=== PATIENT | female | born 1960 | race Caucasian/White ===

== ENCOUNTER → 2017-01-29 | Outpatient (CLI) | payer MEDICARE ==
[~2017-01-29] VITALS: Ht 165.1 cm; Wt 71.7 kg
[~2017-01-29] MED LIST: ALBU8.5H2 INH; ALPR.5T PO; ALPR1T PO; ALPR1TAB7 PO; ASP81CT PO; ASPI-892 PO; ASPI325T32 PO; ATOR40TA PO; ATOR40TA70 PO; BENA40TA59 PO; CATHETER FLUSH 10 ML SYR IV PRN; CEPH500C PO; CLOP75TA28 PO; CLPD75T PO; DOXY100C2 PO; DOXY100C42 PO; FURO80TA3 PO; HYDR-3714 PO; HYDR-3816 PO; HYDR118S10 PO; LAMO150T2 PO; LAMO150T3 PO; LISI10TA PO; LISI10TA2 PO; LISI20TA PO; LISI40TA PO; LSNP10T PO; MELO-195 PO; MELO15TA39 PO; METO-387 PO; METO-395 PO; METO25TA PO; METO25TA2 PO; MTP50T PO; NIA500ERT PO; OMEG-11 PO; OMG1KC PO; PANT40TA2 PO; PARO30TA74 PO; PARO40TA2 PO; PARO40TA3 PO; PARO40TA47 PO; PNT40TEC PO; POTA10TA PO; PRX20T PO; REGADENOSON 0.4 MG/5 ML SYR (LEXISCAN) IV ONE; RT-ALBUINH IH; SPIR25TA3 PO; SULF1TAB38 PO; VERA360C2 PO; VERA80TA PO; ZLP10T PO; ZOLP10TA5 PO; ZOLP5TAB6 PO; ZOLP5TAB7 PO
[2017-01-29 09:31] VITALS: BP 126/71
--- NOTE | 2017-01-30 12:37 | STRESS TEST ---
DATE OF SERVICE: 01/29/2017 PROCEDURE: Resting and post regadenoson technetium-99m Tetrofosmin SPECT CT imaging. CLINICAL DIAGNOSES: Coronary artery disease, hypertension, ischemic cardiomyopathy, chronic kidney disease stage III. Baseline images were carried out after injection of 10.55 mCi of technetium-99m Tetrofosmin. This was followed by 0.4 mg regadenoson and 30.1 mCi of technetium-99m Tetrofosmin for stress imaging. The electrocardiogram showed sinus rhythm with intermittent left bundle branch block and isolated premature ventricular contractions. There is nonspecific ST segment abnormality. Review of images at rest and following stress indicates anteroapical and inferior perfusion defects that are predominantly fixed. Gated images show anteroapical akinesis and inferior hypokinesis. Left ventricular ejection fraction is calculated to be 41%. There is moderate dilatation of the LV. TID is absent ( 1.02). CONCLUSIONS: 1. This study is indicative of anteroapical and inferior myocardial infarction without significant ischemia. 2. Moderate cardiomegaly. Moderate dilatation of the left ventricle. 3. Anteroapical akinesis and inferior hypokinesis. 4. Left ventricular ejection fraction is calculated to be 41%. Job ID: [id number] DocumentID: [id number] Dictated Date: 01/30/2017 10:58:46 Butadiene Convertor Operator Date: 01/30/2017 11:24:29 Dictated By: SHARMILA RAYMUNDO MD, MA, FACP, FACC, MTDD
== END ==
LOC: CARD 08:41
PROVIDERS: ATTEND Internal Medicine Cardiovascular Disease
DX: I25.10 Atherosclerotic heart disease of native coronary artery without angina pectoris (principal); I25.5 Ischemic cardiomyopathy; I12.9 Hypertensive chronic kidney disease with stage 1 through stage 4 chronic kidney disease, or unspecified chronic kidney disease; N18.3 Chronic kidney disease, stage 3 (moderate); E78.4 Other hyperlipidemia; Z72.0 Tobacco use
CPT/HCPCS: 78452; 93017

== ENCOUNTER → 2017-07-09 | Outpatient (CLI) | payer MEDICARE ==
[~2017-07-09] MED LIST changes: -CATHETER FLUSH 10 ML SYR IV PRN; +HYDR-34 PO; -REGADENOSON 0.4 MG/5 ML SYR (LEXISCAN) IV ONE
== END ==
LOC: RAD 12:53
PROVIDERS: ATTEND Internal Medicine Cardiovascular Disease
DX: I73.9 Peripheral vascular disease, unspecified (principal); N18.3 Chronic kidney disease, stage 3 (moderate)
CPT/HCPCS: 93923

== ENCOUNTER → 2018-01-06 | Outpatient (CLI) | payer MEDICARE, OTHER ==
[~2018-01-06] MED LIST changes: -SPIR25TA3 PO; +SPIR25TA5 PO
--- NOTE | 2018-01-06 09:31 | Diagnostic Imaging Report ---
Abdominal aortic ultrasound. INDICATION: Aneurysm. There are no recent examinations available for comparison. FINDINGS: The CT abdomen/pelvis exam of 12/03 noted ectasia of the aorta, but failed to show any sign of aneurysm. On this exam, however, the distal abdominal aorta is aneurysmally dilated. The aorta measures 3.7 x 3.7 CM in maximum transverse and AP diameters. The proximal aorta measures 2.5 x 2.3 cm and the mid aorta 1.9 x 1.9 CM. There is no periaortic fluid collection to suggest an acute abnormality. IMPRESSION: There is a 3.7 x 3.7 CM aneurysm of the distal abdominal aorta. There is no acute abnormality noted. Dictated by: Dictated on workstation # [id number]
== END ==
LOC: RAD 07:00
PROVIDERS: ATTEND Internal Medicine Cardiovascular Disease
DX: I71.4 Abdominal aortic aneurysm, without rupture (principal)
CPT/HCPCS: 76775

== ENCOUNTER → 2018-12-24 | Outpatient (CLI) | payer MEDICARE ==
--- NOTE | 2018-12-24 12:30 | Diagnostic Imaging Report ---
PROCEDURE: US Venous Lower Ext Augusto. TECHNIQUE: Multiple Real-time grayscale images were obtained over the lower extremities in various projections bilaterally. Additional duplex Doppler and color Doppler images were also obtained. INDICATION: Leg pain and swelling COMPARISON: There are no prior studies available for comparison. FINDINGS: There is generally good blood flow and compressibility at all levels. There is no evidence for a deep venous thrombosis of either lower extremity. IMPRESSION: There is no evidence for a deep venous thrombosis of either lower extremity. Dictated by: Dictated on workstation # [id number]
== END ==
LOC: RAD 10:49
PROVIDERS: ATTEND Internal Medicine Cardiovascular Disease
DX: M79.89 Other specified soft tissue disorders (principal); I70.213 Atherosclerosis of native arteries of extremities with intermittent claudication, bilateral legs; I71.4 Abdominal aortic aneurysm, without rupture; I25.10 Atherosclerotic heart disease of native coronary artery without angina pectoris; I65.29 Occlusion and stenosis of unspecified carotid artery; I50.22 Chronic systolic (congestive) heart failure; N18.3 Chronic kidney disease, stage 3 (moderate); Z95.810 Presence of automatic (implantable) cardiac defibrillator; Z72.0 Tobacco use
CPT/HCPCS: 93923; 93970

== ENCOUNTER → 2019-01-21 | Outpatient (CLI) | payer MEDICARE ==
--- NOTE | 2019-01-21 08:07 | Diagnostic Imaging Report ---
INDICATION: Abdominal aortic aneurysm. COMPARISON: Comparison is made with prior ultrasound from 01/06/2018. FINDINGS: Proximal abdominal aorta measures 2.5 cm AP x 2.5 cm transverse. Midabdominal aorta measures 2.3 cm AP x 2.5 cm transverse. Distal abdominal aorta measures 3.8 cm AP x 4.3 cm transverse. This compares with 3.7 cm x 3.7 cm on prior exam. Right iliac measures 2.2 x 1.9 cm and the left iliac measures 1.7 x 1.5 cm. No perianeurysmal fluid collection to suggest leakage or rupture is seen. IMPRESSION: Slight increase in size of distal abdominal aortic aneurysm when compared with examination one year earlier. Dictated by: Dictated on workstation # [id number]
== END ==
LOC: RAD 06:59
PROVIDERS: ATTEND Internal Medicine Cardiovascular Disease
DX: I71.4 Abdominal aortic aneurysm, without rupture (principal)
CPT/HCPCS: 76775

== ENCOUNTER → 2019-10-12 | Outpatient (CLI) | payer MEDICARE ==
[~2019-10-12] MED LIST changes: -METO-387 PO; -METO-395 PO; +MTP100TCR PO; +MTP25TSR PO
== END ==
LOC: CARD 12:00
PROVIDERS: ATTEND Nurse Practitioner Family
DX: I08.1 Rheumatic disorders of both mitral and tricuspid valves (principal); I12.0 Hypertensive chronic kidney disease with stage 5 chronic kidney disease or end stage renal disease; I50.22 Chronic systolic (congestive) heart failure; I71.4 Abdominal aortic aneurysm, without rupture; I70.213 Atherosclerosis of native arteries of extremities with intermittent claudication, bilateral legs; I49.3 Ventricular premature depolarization; I25.10 Atherosclerotic heart disease of native coronary artery without angina pectoris; E78.5 Hyperlipidemia, unspecified; I65.23 Occlusion and stenosis of bilateral carotid arteries
CPT/HCPCS: 93225; 93226; 93306

== ENCOUNTER → 2019-10-13 | Outpatient (CLI) | payer MEDICARE ==
[~2019-10-13] VITALS: Ht 165 cm; Wt 71.0 kg
[~2019-10-13] MED LIST changes: +CATHETER FLUSH 10 ML SYR IV PRN; +REGADENOSON 0.4 MG/5 ML SYR (LEXISCAN) IV ONE
[2019-10-13 09:38] VITALS: BP 142/89
--- NOTE | 2019-10-13 19:49 | STRESS TEST ---
DATE OF SERVICE: 10/13/2019 RESTING AND POST REGADENOSON TECHNETIUM-99M TETROFOSMIN SPECT CT IMAGING ORDERING PHYSICIAN: Adriane Montenegro APRN PRIMARY PHYSICIAN: [facility]. OTHER PHYSICIAN: Dr. Raymundo. CLINICAL DIAGNOSES: Coronary artery disease. Baseline images were carried out after injection of 10.93 mCi of technetium-99m Tetrofosmin. This was followed by 0.4 mg regadenoson and 31.6 mCi of technetium-99m Tetrofosmin for stress imaging. The electrocardiogram showed sinus rhythm at baseline. There was a diffuse nonspecific ST and T-wave abnormality. The electrocardiogram also showed intermittent premature ventricular contractions, including some couplets and triplets. The patient noted mild shortness of breath following regadenoson infusion, which resolved in a few minutes. Review of images shows significant cardiomegaly. Left ventricular end diastolic volume is 237 mL. TID is absent (1.09). The study demonstrates anteroapical and lateral perfusion defects that are predominantly fixed. Gated images show global hypokinesis and anteroapical and lateral wall akinesis. Left ventricular ejection fraction is calculated to be 18%. CONCLUSIONS: 1. This study is indicative of anteroapical and lateral wall infarctions. 2. Global hypokinesis and anteroapical and lateral akinesis. 3. Impairment of global left ventricular systolic function with a calculated ejection fraction of 18%. 4. Cardiomegaly. Job ID: [id number] DocumentID: [id number] Dictated Date: 10/13/2019 15:02:36 Mirror Department Supervisor Date: 10/13/2019 19:48:34 Dictated By: SHARMILA RAYMUNDO MD, MA, FACP, FACC,
== END ==
LOC: CARD 08:00
PROVIDERS: ATTEND Nurse Practitioner Family
DX: I50.22 Chronic systolic (congestive) heart failure (principal); I65.29 Occlusion and stenosis of unspecified carotid artery; E78.5 Hyperlipidemia, unspecified; I25.10 Atherosclerotic heart disease of native coronary artery without angina pectoris; I10 Essential (primary) hypertension; I71.4 Abdominal aortic aneurysm, without rupture; I73.9 Peripheral vascular disease, unspecified; I49.3 Ventricular premature depolarization
CPT/HCPCS: 78452; 93017; A9502

== ENCOUNTER 2019-12-29 10:00 | Day surgery (SDC) | payer MEDICARE ==
[2019-12-29] VITALS (10 sets, daily range): BP systolic 98–147; BP diastolic 63–88
[~2019-12-29] VITALS: Ht 165 cm; Wt 69.0 kg
[2019-12-29 08:19] LABS: HEMOGLOBIN 12.2 g/dL (11.5-16.0); MEAN PLATELET VOLUME 10.4 fL (9.0-12.2)
[2019-12-29 08:32] LABS: PROTHROMBIN TIME PATIENT 13.1 SEC (12.2-14.7)
[2019-12-29 08:39] LABS: ALBUMIN 3.9 GM/DL (3.2-4.5); BILIRUBIN,TOTAL 0.6 MG/DL (0.1-1.0); CALCIUM 9.4 MG/DL (8.5-10.1); CREATININE SERUM 1.23 MG/DL (0.60-1.30); POTASSIUM 3.9 MMOL/L (3.6-5.0)
[~2019-12-29 10:00] MED LIST changes: -CATHETER FLUSH 10 ML SYR IV PRN; +HEParin (CATH LAB) 2,000 ML IV ONE; +LIDOCAINE 1% INJ 20 ML 20 ML VIAL ONE; +MIDAZOLAM 5 MG/5 ML (VERSED) VIAL ONE; +NS IV 1000 ML 1,000 ML IV SCH; +NS IV 1000 ML 1,000 ML ONE; -REGADENOSON 0.4 MG/5 ML SYR (LEXISCAN) IV ONE; +fentaNYL INJECTION 100 MCG/2 ML AMP ONE
--- NOTE | 2019-12-29 10:01 | Cardiac Procedure Note-CS/ASA ---
Pre-Procedure Note Pre-Op Procedure Note H&P Reviewed The H&P was reviewed, patient examined and no changes noted. Date H&P Reviewed: Dec 29, 2019 Time H&P Reviewed: 10:01 Conscious Sedation Pre-Proced Time 10:01 ASA Score 4 For ASA 3 and 4: Consider anesthesia and medical clearance. Also, for patients with a history of failed moderate sedation consider anesthesia. Airway Lungs Heart ASA score ASA 1: a normal healthy patient ASA 2: a patient with a mild systemic disease (mid diabetes, controlled hypertension, obesity ASA 3: a patient with a severe systemic disease that limits activity (angina, COPD, prior Myocardial infarction) ASA 4: a patient with an incapacitating disease that is a constant threat to life (CHF, renal failure) ASA 5: a moribund patient not expected to survive 24 hrs. (ruptured aneurysm) ASA 6: a declared brain- patient whose organs are being harvested. For emergent operations, add the letter E after the classification Mallampati Classification Grade 2 Sedation Plan Analgesia, Amnesia, Plan communicated to team members, Discussed options with patient/fam, Discussed risks with patient/fam The patient is an appropriate candidate to undergo the planned procedure, sedation, and anesthesia. The patient immediately re-assessed prior to indication. SHARMILA RAYMUNDO MD FACP FAC CCDS Dec 29, 2019 10:01
[2019-12-29] MEDS ORDERED: NS IV 1000 ML 1,000 ML IV SCH (10:43)
[2019-12-29] MEDS ORDERED: PATIENT MAY USE OWN MEDS, ALL PO SCH (10:45)
--- NOTE | 2019-12-29 10:45 | Discharge Inst-Cardiology ---
Discharge Inst-Cardiac Discharge Medications Continued Medications: Aspirin (Aspirin Ec Tab) 81 Mg Tabec 81 MG PO DAILY Atorvastatin Calcium (Atorvastatin Calcium) 40 Mg Tablet 40 MG PO HS Clopidogrel Bisulfate (Clopidogrel) 75 Mg Tablet 75 MG PO DAILY, #30 Furosemide (Furosemide) 80 Mg Tablet 80 MG PO DAILY, #30 TAB 5 Refills Lisinopril (Lisinopril) 40 Mg Tablet 40 MG PO DAILY Metoprolol Succinate (Metoprolol Succinate) 100 Mg Tab.er.24h 100 MG PO BID, TAB Pantoprazole Sodium (Protonix) 40 Mg Tablet.dr 40 MG PO DAILY, #30 TAB 5 Refills Potassium Chloride (K-Tab ER) 10 Meq Tablet.er 10 MEQ PO DAILY, #30 TAB 5 Refills SHARMILA RAYMUNDO MD FACP FAC CCDS Dec 29, 2019 10:45
--- NOTE | 2019-12-29 10:46 | Discharge Inst-Post CATH ---
Discharge Inst-CATH/EP Post Cardiac Cath/EP D/C Inst Follow Up/Plan F/u with Dr Dangelo next week ACTIVITY * Go Home directly and rest. * Limit activity of the leg (or wrist if it was used) for 7 days including aerobics, swimming, jogging, bicycling, etc. * Restrict stair-climbing for 7 days if possible, if not, climb up with your no n-cath leg, then bring together on the same step. * Avoid lifting, pushing, pulling or excessive movement of the affected ext remity for 7 days. * Customary sexual activity may be resumed after 2 days-use caution not to use a position that strains or causes pain to the affected extremity. * No driving for 24 hours. * NO SMOKING. * Avoid straining for bowel movements for 7 days. * Gentle walking on level ground is allowed. * Returning to work will depend on the type of procedure and the results. Your doctor will discuss this with you. CALL YOUR DOCTOR FOR ANY OF THE FOLLOWING: *If bleeding from the puncture site occurs- Apply gentle pressure to site with clean cloth and call your doctor or EMS. * If a knot or lump forms under the skin, increases in size, or causes pain. * If bruising appears to be worsening or moving further down your leg instead of disappearing. * Temperature above 101 F. CARE OF YOUR GROIN INCISION; * Bruising or purple discoloration of the skin near the puncture site is common. * You may shower only, no bathtub bathing for 5 days. Be careful to avoid slipping as your leg may feel stiff. * If a closure device was used on your femoral artery, please see the attached guide regarding care of the device and your leg. * Leave dressing on FOR 24 hours. CARE OF YOUR WRIST INCISION; * Bruising or purple discoloration of the skin near the puncture site is common. * You may shower. * DO NOT submerge wrist. * Leave dressing on FOR 24 hours. SHARMILA DANGELO MD FACP FAC CCDS Dec 29, 2019 10:46
--- NOTE | 2019-12-29 12:01 | CARDIAC CATHETERIZATION ---
DATE OF SERVICE: 12/29/2019 CARDIAC CATHETERIZATION REPORT The patient is a 59-year-old lady, who has coronary artery disease and ischemic cardiomyopathy. She has a defibrillator in place. Lately, she has been exhibiting episodes of nonsustained ventricular tachycardia. An electrophysiologic consultation was obtained with Dr. Leach. He recommended cardiac catheterization. This was carried out today after having obtained informed consent. DESCRIPTION OF PROCEDURE: She was brought to the cardiac catheterization laboratory in a fasting state. Right groin was prepared and draped in the usual sterile fashion. Lidocaine 1% was used for local anesthesia. Modified Seldinger technique was used to advance a [place] sheath in right femoral artery, [place] JL4 catheter was used for left coronary angiography, [place] JR4 catheter for right coronary angiography, [place] JR4 catheter was used for angiography of the aortocoronary graft. A 5[place] PAVAN catheter was used for angiography of the left internal mammary artery graft to the left anterior descending. A 5[place] pigtail catheter was used for left heart catheterization and left ventricular angiography. Pigtail was pulled back to the aortic arch and aortic arch angiography was performed. Aortic arch angiography was performed to further evaluate the patient's aortocoronary graft because one graft could not be selectively engaged and the other grafts appeared occluded on selective engagement. The pigtail was removed. Angiography of the right femoral artery was carried out through the sheath. Mynx was used to achieve hemostasis. She tolerated the procedure well. HEMODYNAMICS: Left ventricular end-diastolic pressure following coronary angiography was 10 mmHg. There was no significant pressure gradient on pullback across the aortic valve. Ascending aortic pressure was 107/62 with a mean of 77 mmHg. CORONARY ANGIOGRAPHY: Left coronary calcification is seen. Left main coronary artery does not exist. The left anterior descending and the left circumflex artery appeared to have separate ostia. Left anterior descending artery was difficult to engage. It appears to have moderately severe mid vessel disease. The left circumflex artery has a patent stent in its proximal portion. I passed the stent, it bifurcates and there is approximately 60% bifurcation stenosis. The first obtuse marginal branch has approximately 60% distal stenosis as well. Left to right collaterals are seen. The right coronary artery is occluded in its mid portion. Angiography of the aortocoronary grafts. All aortocoronary grafts appeared to be occluded. These are known to be to a diagonal, and obtuse marginal, and distal right coronary. ANGIOGRAPHY OF THE LEFT INTERNAL MAMMARY GRAFT: Left internal mammary graft to distal left anterior descending artery is patent and free of significant disease. LEFT VENTRICULAR ANGIOGRAPHY: Left ventricular angiography was carried out in the right anterior oblique projection. There is hypokinesis of the anterolateral and apical segments. There is akinesis of the posterobasal and diaphragmatic segments. Left ventricular ejection fraction is approximately 20%. AORTIC ARCH ANGIOGRAPHY: Aortic arch angiography did not indicate any significant ascending aortic or aortic arch aneurysm or dissection. All aortocoronary grafts appeared to be occluded. The origins of the neck arteries are identified. There appears to be mild to moderate stenosis and calcification at the origin of the neck arteries. CONCLUSIONS: 1. Coronary artery disease consisting of moderately severe mid vessel disease of the left anterior descending, relatively moderate disease of the mid left circumflex and distal portion of the first obtuse marginal, and mid vessel occlusion of the right coronary. 2. Occluded aortocoronary grafts that are known to be to right coronary, obtuse marginal, and a diagonal system. 3. Patent left internal mammary artery graft to the left anterior descending. 4. Severe impairment of global left ventricular systolic function with anterolateral and apical hypokinesis, and posterobasal and diaphragmatic akinesis. 5. Left ventricular ejection fraction is estimated to be approximately 20%. 6. Normal left ventricular end-diastolic pressure. DISCUSSION AND RECOMMENDATIONS: Based on the results of the study, it appears appropriate to continue a conservative approach for coronary artery disease. Defibrillator place and functioning normally. Optimal therapy for ischemic cardiomyopathy is in place and being continued. Further adjustment as needed, will be done on continuing outpatient basis. She is to continue followup with electrophysiology as well. Job ID: [id number] DocumentID: [id number] Dictated Date: 12/29/2019 11:01:02 Customer Support Engineer Date: 12/29/2019 12:00:26 Dictated By: SHARMILA RAYMUNDO MD, MA, FACP, FACC, MTDD
== END 2019-12-29 14:35 | disposition home or self-care (01) ==
LOC: CATH 10:00 → SDC 10:44 → CATH 14:35
PROVIDERS: ATTEND Internal Medicine Cardiovascular Disease
DX: I25.10 Atherosclerotic heart disease of native coronary artery without angina pectoris (principal); I13.0 Hypertensive heart and chronic kidney disease with heart failure and stage 1 through stage 4 chronic kidney disease, or unspecified chronic kidney disease; I50.23 Acute on chronic systolic (congestive) heart failure; N18.30 Chronic kidney disease, stage 3 unspecified; I71.4 Abdominal aortic aneurysm, without rupture; K21.9 Gastro-esophageal reflux disease without esophagitis; E78.5 Hyperlipidemia, unspecified; F41.9 Anxiety disorder, unspecified; M48.02 Spinal stenosis, cervical region; I34.0 Nonrheumatic mitral (valve) insufficiency; F17.210 Nicotine dependence, cigarettes, uncomplicated; Z79.82 Long term (current) use of aspirin; Z79.899 Other long term (current) drug therapy; Z88.0 Allergy status to penicillin; Z90.710 Acquired absence of both cervix and uterus; Z90.49 Acquired absence of other specified parts of digestive tract; Z95.1 Presence of aortocoronary bypass graft; Z82.3 Family history of stroke
CPT/HCPCS: 36221; 80053; 80061; 85027; 85610; 85730; 87081; 93458; C1760; C1769; C1894; 36415

== ENCOUNTER 2020-02-15 09:20 | Emergency (ER) | payer MEDICARE ==
[~2020-02-15] VITALS: Ht 167.7 cm; Wt 70.3 kg
[~2020-02-15 09:20] MED LIST changes: -HEParin (CATH LAB) 2,000 ML IV ONE; -LIDOCAINE 1% INJ 20 ML 20 ML VIAL ONE; -MIDAZOLAM 5 MG/5 ML (VERSED) VIAL ONE; -NS IV 1000 ML 1,000 ML IV SCH; -NS IV 1000 ML 1,000 ML ONE; -fentaNYL INJECTION 100 MCG/2 ML AMP ONE
[2020-02-15 09:55] LABS: BASOPHILS # (AUTO) 0.1 10^3/uL (0.0-0.1); BASOPHILS % (AUTO) 1 % (0-10); EOSINOPHILS % (AUTO) 0 % (0-10); HEMATOCRIT 40 % (35-52); HEMOGLOBIN 12.3 g/dL (11.5-16.0); LYMPHOCYTES # (AUTO) 2.1 10^3/uL (1.0-4.0); LYMPHOCYTES % (AUTO) 20 % (12-44); MEAN CORPUSCULAR HEMOGLOBIN 27 pg (25-34); MEAN CORPUSCULAR HGB CONC 31 g/dL (32-36); MEAN CORPUSCULAR VOLUME 86 fL (80-99); MEAN PLATELET VOLUME 10.9 fL (9.0-12.2); MONOCYTES # (AUTO) 0.6 10^3/uL (0.0-1.0); MONOCYTES % (AUTO) 6 % (0-12); NEUTROPHILS # (AUTO) 7.6 10^3/uL (1.8-7.8); NEUTROPHILS % (AUTO) 73 % (42-75); PLATELET COUNT 317 10^3/uL (130-400); WHITE BLOOD COUNT 10.5 10^3/uL (4.3-11.0)
[2020-02-15] MEDS ORDERED: fentaNYL INJECTION 100 MCG/2 ML AMP IVP ONE ×3 (10:00→14:00)
[2020-02-15] MEDS ORDERED: ONDANSETRON 4 MG/2 ML (SDV) Z0FRAN IVP ONE (10:00)
[2020-02-15] MEDS ORDERED: LACTATED RINGERS 1,000 ML IV ONE (10:00)
[2020-02-15 10:05] LABS: ALBUMIN 3.8 GM/DL (3.2-4.5); BILIRUBIN,TOTAL 0.6 MG/DL (0.1-1.0); CALCIUM 9.4 MG/DL (8.5-10.1); CREATININE SERUM 1.28 MG/DL (0.60-1.30); POTASSIUM 3.5 MMOL/L (3.6-5.0); TOTAL PROTEIN 8.1 GM/DL (6.4-8.2)
[2020-02-15 10:31] LABS: BILIRUBIN,URINE NEGATIVE (NEGATIVE); CLARITY,URINE CLEAR; COLOR,URINE YELLOW; GLUCOSE, URINE (UA) NEGATIVE (NEGATIVE); KETONES,URINE NEGATIVE (NEGATIVE); LEUKOCYTE ESTERASE ,URINE NEGATIVE (NEGATIVE); NITRITE,URINE NEGATIVE (NEGATIVE); PROTEIN,URINE 3+ (NEGATIVE)
[2020-02-15 10:53] LABS: BACTERIA,URINE MODERATE /HPF; RBC,URINE 25-50 /HPF; WBC,URINE 0-2 /HPF
--- NOTE | 2020-02-15 11:48 | Diagnostic Imaging Report ---
PROCEDURE: CT urinary tract, rule out kidney stone. TECHNIQUE: Multiple contiguous axial images were obtained through the abdomen and pelvis without the use of intravenous contrast. Auto Exposure Controls were utilized during the CT exam to meet ALARA standards for radiation dose reduction. INDICATION: Bilateral posterior abdominal pain. COMPARISON: Correlation is made with prior CT from 12/04/2011. FINDINGS: Lung bases are clear. Liver is unremarkable. Gallbladder is surgically absent. No biliary ductal dilatation is seen. The pancreas and spleen are unremarkable. No adrenal mass is identified. Probable tiny nonobstructing calculus in the right kidney is noted. Left kidney does contain a large cystic mass of 5.7 cm transverse diameter compared with 2.6 cm on prior exam. In addition, there has been increase in size of the infrarenal abdominal aorta. This measures 4.7 cm in AP diameter compared with 2.9 cm on prior exam. There does appear to be some very mild hazy density surrounding the infrarenal abdominal aorta. No definite retroperitoneal hemorrhage is detected. Aorta and iliac vessels are heavily calcified. The small and large bowel loops are normal in caliber. There is moderate diverticulosis of the sigmoid but no evidence of acute diverticulitis. The bladder is decompressed. There is no free fluid or fluid collection. Bony structures are nonacute. IMPRESSION: 1. Right-sided nonobstructive nephrolithiasis and large left renal cyst. 2. Infrarenal abdominal aortic aneurysm, increased since prior exam from 2011. In addition, there is hazy density surrounding the aneurysmal portion of the abdominal aorta. This can be seen with minimal leakage however no kimberly rupture or evidence of retroperitoneal hemorrhage is detected. Ill-defined appearance to the aorta can also be seen with an inflammatory process such as aortitis. 3. Uncomplicated sigmoid diverticulosis. Dictated by: Dictated on workstation # [id number]
--- NOTE | 2020-02-15 12:40 | ED Abdominal Pain ---
General Chief Complaint: Abdominal/GI Problems Stated Complaint: ABD/LOWER BACK PAIN VOMITING Nursing Triage Note: Ambulatory to rm 5. Pt c/o severe abdominal pain that began 3-4 days ago. Pt reports gas, distention, nausea. Pt vomited once this morning after drinking coffee. Sepsis Screen: No Definite Risk Source of Information: Patient Exam Limitations: No Limitations History of Present Illness Date Seen by Provider: Feb 15, 2020 Time Seen by Provider: 09:44 Initial Comments This is a 59-year-old woman presents to the emergency room with complaints of abdominal discomfort and distention and lower back pain for the past 3 or 4 days. She has had a couple episodes of vomiting as well. She denies any diarrhea, constipation, fever, cough, or other symptoms of acute infectious illness. No known Covid exposures. Allergies and Home Medications Allergies Coded Allergies: Penicillins (Verified Allergy, Intermediate, RASH, 11/03/14) Home Medications Aspirin 81 Mg Tabec, 81 MG PO DAILY, (Reported) Atorvastatin Calcium 40 Mg Tablet, 40 MG PO HS, (Reported) Ciprofloxacin HCl 500 Mg Tablet, 500 MG PO BID Prescribed by: JEAN SCHULTE on 02/15/20 1414 Clopidogrel Bisulfate 75 Mg Tablet, 75 MG PO DAILY, (Reported) Furosemide 80 Mg Tablet, 80 MG PO DAILY Prescribed by: SHARMILA RAYMUNDO on 11/05/15 1303 Lisinopril 40 Mg Tablet, 40 MG PO DAILY, (Reported) Metoprolol Succinate 100 Mg Tab.er.24h, 100 MG PO BID, (Reported) Ondansetron 4 Mg Tab.rapdis, 4 MG SL Q4H PRN for NAUSEA/VOMITING Prescribed by: JEAN SCHULTE on 02/15/20 1409 Pantoprazole Sodium 40 Mg Tablet.dr, 40 MG PO DAILY Prescribed by: JULES DIAZ on 11/04/14 1317 Potassium Chloride 10 Meq Tablet.er, 10 MEQ PO DAILY Prescribed by: SHARMILA RAYMUNDO on 11/05/15 1303 Prednisone 20 Mg Tab, 40 MG PO DAILY Prescribed by: JEAN SCHULTE on 02/15/20 1409 Tramadol HCl 50 Mg Tablet, 50 MG PO Q6H PRN for PAIN-BREAKTHROUGH Prescribed by: JEAN SCHULTE on 02/15/20 1410 Patient Home Medication List Home Medication List Reviewed: Yes Review of Systems Review of Systems Constitutional: no symptoms reported EENTM: No Symptoms Reported Respiratory: No Symptoms Reported Cardiovascular: No Symptoms Reported Gastrointestinal: See HPI Genitourinary: No Symptoms Reported Musculoskeletal: see HPI Skin: no symptoms reported Psychiatric/Neurological: No Symptoms Reported Endocrine: No Symptoms Reported Past Urivlva-Kxirrm-Wtjibi Hx Past Med/Social Hx: Reviewed and Corrections made Patient Social History Alcohol Use: Denies Use Recreational Drug Use: No (SMOKES 1/2 PPD) Smoking Status: Current Everyday Smoker Type Used: Cigarettes Recent Foreign Travel: No Contact w/Someone Who Travel: No Recent Infectious Disease Expo: No Recent Hopitalizations: No Immunizations Up To Date Tetanus Booster (TDap): Unknown Date of Pneumonia Vaccine: Aug 24, 2010 Date of Influenza Vaccine: Apr 20, 2014 Seasonal Allergies Seasonal Allergies: No Past Medical History Surgeries: Yes (CORONARY STENT, LAP JOHNATHON, TOTAL HYSTERECTOMY) Breast, Cardiac, CABG, Section, Coronary Stent, Gallbladder, Hysterectomy, Oophorectomy, Orthopedic Respiratory: Yes Pneumonia Currently Using CPAP: No Currently Using BIPAP: No Cardiac: Yes (CABG (2011), X2 VA, STENTS, DEFIBRILLATOR, CARDIOMEGALY ) Cardiomyopathy, Coronary Artery Disease, Deep Vein Thrombosis, Heart Attack, High Cholesterol, Hypertension, Irregular Heartbeat, Syncope Neurological: No Reproductive Disorders: Yes (CERVICAL DYSPLASIA ) 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 Genitourinary: Yes (History pyelonephritis) Kidney Infection, Renal Failure, UTI-Chronic Gastrointestinal: Yes (abdominal aneurysm) Gastroesophageal Reflux, Diverticulosis, Hiatal Hernia Musculoskeletal: Yes ( CERVICAL STENOSIS, SEVERE CHRONIC BRUSITIS RT SHOULDER) Arthritis, Chronic Back Pain Endocrine: No Cancer: No (CERVICAL CLASS I DYSPLASIA ) Cervical Psychosocial: Yes Anxiety, Depression Integumentary: No Blood Disorders: Yes (DVT RT BRACHIAL ) Adverse Reaction/Blood Tranf: No Family Medical History Cardiovascular disease G8 SISTER DVT 19 MOTHER FH: bladder cancer 19 FATHER, FH: colon cancer 19 FATHER, FH: liver cancer G8 BROTHER, HEMORRHAGIC STROKE 19 MOTHER No Pertinent Family Hx Physical Exam Vital Signs Vital Signs - First Documented 02/15/20 09:30 Temp 36.1 Pulse 108 Resp 26 B/P (MAP) 124/100 (108) Pulse Ox 95 O2 Delivery Room Air Capillary Refill : Less Than 3 Seconds Height/Weight/BMI Height: 5'5.00" Weight: 158lbs. 0.0oz. 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9 9.0-12.2 fL Immature Granulocyte % (Auto) 0 % Neutrophils (%) (Auto) 73 42-75 % Lymphocytes (%) (Auto) 20 12-44 % Monocytes (%) (Auto) 6 0-12 % Eosinophils (%) (Auto) 0 0-10 % Basophils (%) (Auto) 1 0-10 % Neutrophils # (Auto) 7.6 1.8-7.8 10^3/uL Lymphocytes # (Auto) 2.1 1.0-4.0 10^3/uL Monocytes # (Auto) 0.6 0.0-1.0 10^3/uL Eosinophils # (Auto) 0.0 0.0-0.3 10^3/uL Basophils # (Auto) 0.1 0.0-0.1 10^3/uL Immature Granulocyte # (Auto) 0.0 0.0-0.1 10^3/uL Sodium Level 140 135-145 MMOL/L Potassium Level 3.5 L 3.6-5.0 MMOL/L Chloride Level 101 98-107 MMOL/L Carbon Dioxide Level 28 21-32 MMOL/L Anion Gap 11 5-14 MMOL/L Blood Urea Nitrogen 23 H 7-18 MG/DL Creatinine 1.28 0.60-1.30 MG/DL Estimat Glomerular Filtration Rate 42 BUN/Creatinine Ratio 18 Glucose Level 127 H 70-105 MG/DL Calcium Level 9.4 8.5-10.1 MG/DL Corrected Calcium 9.6 8.5-10.1 MG/DL Total Bilirubin 0.6 0.1-1.0 MG/DL Aspartate Amino Transf (AST/SGOT) 13 5-34 U/L Alanine Aminotransferase (ALT/SGPT) 8 0-55 U/L Alkaline Phosphatase 174 H 40-136 U/L C-Reactive Protein High Sensitivity 7.91 H 0.00-0.50 MG/DL Total Protein 8.1 6.4-8.2 GM/DL Albumin 3.8 3.2-4.5 GM/DL Lipase 22 8-78 U/L Urine Color YELLOW Urine Clarity CLEAR Urine pH 6.0 5-9 Urine Specific [place] >=1.030 1.016-1.022 Urine Protein 3+ H NEGATIVE Urine Glucose (UA) NEGATIVE NEGATIVE Urine Ketones NEGATIVE NEGATIVE Urine Nitrite NEGATIVE NEGATIVE Urine Bilirubin NEGATIVE NEGATIVE Urine Urobilinogen 0.2 < = 1.0 MG/DL Urine Leukocyte Esterase NEGATIVE NEGATIVE Urine RBC (Auto) 3+ H NEGATIVE Urine RBC 25-50 H /HPF Urine WBC 0-2 /HPF Urine Squamous Epithelial Cells 5-10 /HPF Urine Crystals NONE /LPF Urine Bacteria MODERATE H /HPF Urine Casts NONE /LPF Urine Mucus NEGATIVE /LPF Urine Culture Indicated YES Micro Results Microbiology 02/15/20 Urine Culture - Final, Complete >=3 Gram Positive Isolates My Orders Orders - JEAN LIVINGSTON MD Cbc With Automated Diff (02/15/20 09:48) Comprehensive Metabolic Panel (02/15/20 09:48) Hs C Reactive Protein (02/15/20 09:48) Lipase (02/15/20 09:48) Ua Culture If Indicated (02/15/20 09:48) Ed Iv/Invasive Line Start (02/15/20 09:48) Lactated Ringers (Lr 1000 Ml Iv Solution (02/15/20 10:00) Fentanyl Injection (Sublimaze Injection (02/15/20 10:00) Ondansetron Injection (Zofran Injectio (02/15/20 10:00) Fentanyl Injection (Sublimaze Injection (02/15/20 11:00) Urine Culture (02/15/20 09:38) Ct Abd/Pelvis Wo(Kidney Stone) (02/15/20 11:21) Ct Angio Chst/Abd/Pelv W (02/15/20 12:17) Iohexol Injection (Omnipaque 350 Mg/Ml 1 (02/15/20 12:45) Received Contrast (Hold Metformin- Contr (02/15/20 12:45) Ns (Ivpb) (Sodium Chloride 0.9% Ivpb Bag (02/15/20 12:45) Fentanyl Injection (Sublimaze Injection (02/15/20 14:00) Ketorolac Injection (Toradol Injection) (02/15/20 14:15) Medications Given in ED Vital Signs/I&O 02/15/20 02/15/20 09:30 14:45 Temp 36.1 36.1 Pulse 108 98 Resp 26 20 B/P (MAP) 124/100 (108) 118/97 (108) Pulse Ox 95 96 O2 Delivery Room Air Room Air Blood Pressure Mean: 108 Progress Progress Note #1: Time: 12:[address] scan was reviewed with the radiologist. There are inflammatory changes and an increase in size of the abdominal aortic aneurysm from prior. This combined with microscopic hematuria raises concern for early rupture and/or dissection. We are following her noncontrast study with CT angiogram. Symptoms are better controlled at this time. Pain was treated with fentanyl and nausea was treated with Zofran. Progress Note #2: Progress Note I discussed the situation with the radiologist. Because of concern of changing aortic aneurysmal features, the plain CT was followed with a CT angiogram. No dissection or leak was identified. I discussed the situation with Dr. 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 He advises that she follow-up in 1 to 2 weeks. No immediate interventions were recommended. He did not believe the CT findings would account for her pain. Diagnostic Imaging Diagonstic Imaging: CT Plain Films/CT/US/NM/MRI: abdomen, pelvis Comments Noncontrast CT of the abdomen and pelvis report reviewed and discussed with the radiologist. See report below: NAME: TRE SEALS [facility] REC#: [id number] PT STATUS: REG ER : 1960 PHYSICIAN: JEAN LIVINGSTON MD ADMIT DATE: 02/15/20/ER Draft Date of Exam:02/15/20 CT ABD/PELVIS WO(KIDNEY STONE) PROCEDURE: CT urinary tract, rule out kidney stone. TECHNIQUE: Multiple contiguous axial images were obtained through the abdomen and pelvis without the use of intravenous contrast. Auto Exposure Controls were utilized during the CT exam to meet ALARA standards for radiation dose reduction. INDICATION: Bilateral posterior abdominal pain. COMPARISON: Correlation is made with prior CT from 12/04/2011. FINDINGS: Lung bases are clear. Liver is unremarkable. Gallbladder is surgically absent. No biliary ductal dilatation is seen. The pancreas and spleen are unremarkable. No adrenal mass is identified. Probable tiny nonobstructing calculus in the right kidney is noted. Left kidney does contain a large cystic mass of 5.7 cm transverse diameter compared with 2.6 cm on prior exam. In addition, there has been increase in size of the infrarenal abdominal aorta. This measures 4.7 cm in AP diameter compared with 2.9 cm on prior exam. There does appear to be some very mild hazy density surrounding the infrarenal abdominal aorta. No definite retroperitoneal hemorrhage is detected. Aorta and iliac vessels are heavily calcified. The small and large bowel loops are normal in caliber. There is moderate diverticulosis of the sigmoid but no evidence of acute diverticulitis. The bladder is decompressed. There is no free fluid or fluid collection. Bony structures are nonacute. IMPRESSION: 1. Right-sided nonobstructive nephrolithiasis and large left renal cyst. 2. Infrarenal abdominal aortic aneurysm, increased since prior exam from 2011. In addition, there is hazy density surrounding the aneurysmal portion of the abdominal aorta. This can be seen with minimal leakage however no kimberly rupture or evidence of retroperitoneal hemorrhage is detected. Ill-defined appearance to the aorta can also be seen with an inflammatory process such as aortitis. 3. Uncomplicated sigmoid diverticulosis. Dictated on workstation # [id number] Dict: 02/15/20 1138 Trans: 02/15/20 1148 [id number] Interpreted by: STEPHAN RAMÍREZ MD Reviewed: Reviewed by Me, Discussed w/Radiologist Diagonstic Imaging: CT Plain Films/CT/US/NM/MRI: abdomen, pelvis Comments NAME: TRE [facility] REC#: [id number] PT STATUS: DEP ER : 1960 PHYSICIAN: JEAN LIVINGSTON MD ADMIT DATE: 02/15/20/ER Signed Date of Exam:02/15/20 CT ANGIO CHST/ABD/PELV W PROCEDURE: CT angiography of the chest with contrast and CT abdomen and pelvis with contrast. TECHNIQUE: Multiple contiguous axial images were obtained through the chest, abdomen and pelvis after administration of intravenous contrast. 3D MIP reconstructed CT angiography acquisitions of the aorta were then performed. Auto Exposure Controls were utilized during the CT exam to meet ALARA standards for radiation dose reduction. INDICATION: Chest and abdominal pain with aortic aneurysm. COMPARISON: Noncontrast CT scan of the abdomen and pelvis dated 02/15/2020. FINDINGS: CT chest: There has been coronary artery bypass with left anterior chest wall defibrillator device in good position. There is mild generalized cardiomegaly with left ventricular and left atrial enlargement. There is diffuse thoracic aortic atherosclerotic disease and coronary artery calcification. No thoracic aortic aneurysm or dissection is identified. There is no evidence of mediastinal hematoma or fluid collection. No significant pleural or pericardial fluid is identified. The lungs are clear. CTA abdomen and pelvis: Moderate atherosclerotic disease involves the upper abdominal aorta with moderate atherosclerotic disease at the origins of celiac trunk, superior mesenteric artery and both renal arteries. There is good perfusion of both kidneys. Dominant lower pole of left renal cyst is similar to the previous exam. No focal hepatic, pancreatic, adrenal gland or splenic lesion is identified. Gallbladder is surgically absent. There is infrarenal abdominal aortic aneurysm reaching approximately 4.8 x 5.0 cm in diameter. There is moderate eccentric mural thrombus and mural thickening with aneurysmal extension into the common and external iliac arteries, bilaterally. No occlusion or dissection is identified. Periaortic density may represent inflammation. No definite contrast extravasation or retroperitoneal fluid collections identified. Unopacified urinary bladder is unremarkable. IMPRESSION: Infrarenal abdominal aortic aneurysm reaching 5 cm in diameter with eccentric mural thickening and periaortic edema or inflammation. Component of aortitis is not excluded. No dissection or contrast extravasation is identified. There is generalized cardiomegaly with left ventricular and atrial dilatation. Coronary artery bypass is present with extensive coronary artery calcifications. Dictated by: Dictated on workstation # [id number] Dict: 02/15/20 1310 Trans: 02/15/20 1700 [facility] [id number] Interpreted by: BEN NAVARRETE MD Electronically signed by: BEN NAVARRETE MD 02/15/20 1700 Reviewed: Reviewed by Me, Discussed w/Radiologist Departure Impression Primary Impression: Low back pain Qualified Codes: M54.5 - Low back pain Additional Impressions: Lower abdominal pain Hematuria Qualified Codes: R31.9 - Hematuria, unspecified Urinary tract infection Qualified Codes: N39.0 - Urinary tract infection, site not specified; R31.9 - Hematuria, unspecified Abdominal aortic aneurysm Qualified Codes: I71.4 - Abdominal aortic aneurysm, without rupture Disposition: 01 HOME, SELF-CARE Condition: Improved Departure-Patient Inst. Decision time for Depature: 14:12 Referrals: [facility] [place] (PCP/Family) Primary Care Physician Patient Instructions: Abdominal Aortic Aneurysm, Blood in the Urine (Hematuria) in Adults, Low Back Pain in Adults Add. Discharge Instructions: Drink plenty of clear liquids to stay well-hydrated. Complete your antibiotics as prescribed. Follow-up with your primary care provider after 48 hours to review urine culture results. Also follow-up with your primary care provider in a couple of weeks for repeat urinalysis to ensure the blood clears. Keep your follow-up with Dr. Farmer in a week or 2. Contact his office after they reviewed the CT scan performed today. Seek advice on whether the scan they have ordered is still warranted. Return to the emergency room if you have worsening symptoms. Call with any questions or concerns. Continue to work toward quitting smoking as rapidly as possible. All discharge instructions reviewed with patient and/or family. Voiced understanding. Scripts Ciprofloxacin HCl (Cipro) 500 Mg Tablet 500 MG PO BID, #14 TAB Prov: JEAN LIVINGSTON MD 02/15/20 Prednisone (Prednisone) 20 Mg Tab 40 MG PO DAILY, #6 TAB 0 Refills Prov: JEAN LIVINGSTON MD 02/15/20 Tramadol HCl (Ultram) 50 Mg Tablet 50 MG PO Q6H PRN for PAIN-BREAKTHROUGH, #20 TAB Prov: JEAN LIVINGSTON MD 02/15/20 Ondansetron (Ondansetron Odt) 4 Mg Tab.rapdis 4 MG SL Q4H PRN for NAUSEA/VOMITING, #10 TAB Prov: JEAN LIVINGSTON MD 02/15/20 Copy Copies To 1: MARYURI MENJIVAR JOSHUA T MD Feb 15, 2020 12:40
[2020-02-15] MEDS ORDERED: IOHEXOL 350 MG/ML 100 ML (OMNIPAQUE 350) VIAL IV ONE (12:45)
[2020-02-15] MEDS ORDERED: NS 100 ML (IVPB) BAG IV ONE (12:45)
[2020-02-15] MEDS ORDERED: HOLD METFORMIN - RECEIVED CONTRAST 20 ML VIAL IV SCH (12:45)
--- NOTE | 2020-02-15 13:34 | Diagnostic Imaging Report ---
PROCEDURE: CT angiography of the chest with contrast and CT abdomen and pelvis with contrast. TECHNIQUE: Multiple contiguous axial images were obtained through the chest, abdomen and pelvis after administration of intravenous contrast. 3D MIP reconstructed CT angiography acquisitions of the aorta were then performed. Auto Exposure Controls were utilized during the CT exam to meet ALARA standards for radiation dose reduction. INDICATION: Chest and abdominal pain with aortic aneurysm. COMPARISON: Noncontrast CT scan of the abdomen and pelvis dated 02/15/2020. FINDINGS: CT chest: There has been coronary artery bypass with left anterior chest wall defibrillator device in good position. There is mild generalized cardiomegaly with left ventricular and left atrial enlargement. There is diffuse thoracic aortic atherosclerotic disease and coronary artery calcification. No thoracic aortic aneurysm or dissection is identified. There is no evidence of mediastinal hematoma or fluid collection. No significant pleural or pericardial fluid is identified. The lungs are clear. CTA abdomen and pelvis: Moderate atherosclerotic disease involves the upper abdominal aorta with moderate atherosclerotic disease at the origins of celiac trunk, superior mesenteric artery and both renal arteries. There is good perfusion of both kidneys. Dominant lower pole of left renal cyst is similar to the previous exam. No focal hepatic, pancreatic, adrenal gland or splenic lesion is identified. Gallbladder is surgically absent. There is infrarenal abdominal aortic aneurysm reaching approximately 4.8 x 5.0 cm in diameter. There is moderate eccentric mural thrombus and mural thickening with aneurysmal extension into the common and external iliac arteries, bilaterally. No occlusion or dissection is identified. Periaortic density may represent inflammation. No definite contrast extravasation or retroperitoneal fluid collections identified. Unopacified urinary bladder is unremarkable. IMPRESSION: Infrarenal abdominal aortic aneurysm reaching 5 cm in diameter with eccentric mural thickening and periaortic edema or inflammation. Component of aortitis is not excluded. No dissection or contrast extravasation is identified. There is generalized cardiomegaly with left ventricular and atrial dilatation. Coronary artery bypass is present with extensive coronary artery calcifications. Dictated by: Dictated on workstation # [id number]
[2020-02-15] MEDS ORDERED: PRD20T PO (14:09)
[2020-02-15] MEDS ORDERED: ONDA4TAB11 SL (14:09)
[2020-02-15] MEDS ORDERED: TRAM-42 PO (14:09)
[2020-02-15] MEDS ORDERED: CIPR-225 PO (14:14)
[2020-02-15] MEDS ORDERED: KETOROLAC 30 MG/ML VIAL IVP ONE (14:15)
[2020-02-15 14:45] VITALS: BP 118/97
== END 2020-02-15 14:45 | disposition home or self-care (01) ==
LOC: EDUNIT# 09:20 → ER 09:23
DX: M54.5 Low back pain (principal); R10.30 Lower abdominal pain, unspecified; R31.9 Hematuria, unspecified; N39.0 Urinary tract infection, site not specified; I71.4 Abdominal aortic aneurysm, without rupture; K21.9 Gastro-esophageal reflux disease without esophagitis; E78.00 Pure hypercholesterolemia, unspecified; I10 Essential (primary) hypertension; I25.2 Old myocardial infarction; F17.210 Nicotine dependence, cigarettes, uncomplicated; Z82.49 Family history of ischemic heart disease and other diseases of the circulatory system; Z80.1 Family history of malignant neoplasm of trachea, bronchus and lung; Z80.0 Family history of malignant neoplasm of digestive organs; Z80.52 Family history of malignant neoplasm of bladder; Z95.810 Presence of automatic (implantable) cardiac defibrillator; Z95.1 Presence of aortocoronary bypass graft; Z95.5 Presence of coronary angioplasty implant and graft; Z85.41 Personal history of malignant neoplasm of cervix uteri; Z79.52 Long term (current) use of systemic steroids; Z79.82 Long term (current) use of aspirin
CPT/HCPCS: 36415; 71275; 74174; 74176; 80053; 81000; 83690; 85025; 86141; 87088

== ENCOUNTER → 2020-12-27 | Outpatient (CLI) | payer MEDICARE ==
[~2020-12-27] MED LIST changes: +CATHETER FLUSH 10 ML SYR IV PRN; +CIPR-225 PO; +HOLD METFORMIN - RECEIVED CONTRAST 20 ML VIAL IV SCH; +IOHEXOL 350 MG/ML 100 ML (OMNIPAQUE 350) VIAL IV ONE; -LISI40TA PO; +LISI40TA9 PO; +NS 100 ML (IVPB) BAG IV ONE; +ONDA4TAB11 SL; +PRD20T PO; +TRAM-42 PO
[2020-12-27 08:15] LABS: CREATININE SERUM 1.2 MG/DL (0.60-1.30)
--- NOTE | 2020-12-27 09:42 | Diagnostic Imaging Report ---
EXAMINATION: CT angiography of the abdomen. TECHNIQUE: After intravenous administration of contrast, thin section axial CT angiography of the abdomen and were obtained. 3D MIP reformats were provided. All CT scans use one or more of the following dose optimizing techniques: automated exposure control, MA and/or KvP adjustment based on a patient size and exam type, or iterative reconstruction. HISTORY: Aortic aneurysm. COMPARISON: 02/15/2020. FINDINGS: The abdominal aortic aneurysm has increased in size measuring 5.3 x 5.1 cm, previously 4.9 x 5.0 cm. It begins just below the renal arteries. There is aneurysmal dilation of both common iliac arteries. Right common iliac artery measures 2.4 cm and left common iliac artery measures 2.2 cm. There is extensive mural thrombus. There is no hyperdense crescent or tangential calcium. There is no draping of the aorta over the vertebral body. No tiffanie-aneurysmal stranding. Limited views of the lower thorax are unremarkable. The liver is normal without focal lesion. There is no biliary ductal dilation. Gallbladder is surgically absent. Pancreas is normal. Spleen is normal. Adrenal glands are normal. There are simple cysts in the left kidney. No suspicious renal lesions. There is no hydronephrosis. Visualized bowel is normal in caliber without obstruction or inflammation. No free fluid or air. No abdominal lymphadenopathy. There are no suspicious osseus lesions. IMPRESSION: Increase in size of infrarenal abdominal aortic aneurysm measuring 5.3 x 5.1 cm, previously 4.9 x 5.0 cm. There are no imaging features of impending rupture. Dictated by: Dictated on workstation # [id number]
== END ==
LOC: RAD 07:41
PROVIDERS: ATTEND Internal Medicine Cardiovascular Disease
DX: I71.4 Abdominal aortic aneurysm, without rupture (principal)
CPT/HCPCS: 36415; 74175; 82565

== ENCOUNTER 2021-03-22 13:35 | Observation (INO) | payer MEDICARE ==
[~2021-03-22] VITALS: Ht 165 cm; Wt 62.6 kg
[~2021-03-22 13:35] MED LIST changes: -CATHETER FLUSH 10 ML SYR IV PRN; -HOLD METFORMIN - RECEIVED CONTRAST 20 ML VIAL IV SCH; -IOHEXOL 350 MG/ML 100 ML (OMNIPAQUE 350) VIAL IV ONE; -NS 100 ML (IVPB) BAG IV ONE
[2021-03-22] MEDS ORDERED: AMLO2.5T4 PO (13:56)
--- NOTE | 2021-03-22 14:04 | ED Chest Pain ---
General Chief Complaint: Chest Pain Stated Complaint: SOB,CP Nursing Triage Note: Patient brought to ER via wheelchair with c/o chest pain and shortness of breath. Pt states this pain began 2-3 days ago and shortness of breath is worse with activity. Pt states she believes she had the flu approximately 10 days ago due to grandchild testing positive for the flu. Pt states chest pain is present under both breasts and does not radiate anywhere. Pain is worse with coughing and movement. pt states the pain is pressure across entire chest. She does have a history of AAA repair with two cardiac stents 3 weeks ago at [place] by Dr lew. She also had an appointment with [facility] cardiology due to multiple PVC history and chest pain on Mar [address] Lew on Mar 21 but missed both due to illness. Source: patient, family (son) Exam Limitations: no limitations History of Present Illness Date Seen by Provider: Mar 22, 2021 Time Seen by Provider: 13:50 Initial Comments Patient is a 60-year-old female with an extensive cardiac history who presents to the emergency room with a chief complaint of lower chest/epigastric discomfort all the way across under her breasts onset a couple of days ago. Patient states it is intermittent, worsened with exertion she becomes very short of breath feels intense pressure and feels like she might pass out. She states approximately 30 minutes prior to arrival it was severe and that is what prompted her to come to the emergency room. Patient recently had AAA repair with 2 stents placed in her heart by Dr. Emanuel Lew at [place] 7 days ago. She is on Plavix and baby aspirin daily. She also has been under the care of Dr. Dangelo, recently referred to an line rider at but was unable to make her appointment on 15 March secondary to susan influenza A. Reji yi is awaiting rescheduling of this visit. She denies any recent fevers, chills or productive cough. She does continue to smoke a little. She maintains compliance with all her daily medications. Currently, while at rest she is asymptomatic. She does complain of a little bit of fluid retention. Her Lasix was recently decreased from 80 to 40 mg. She is urinating normally, no hematuria. She has normal bowel function. No concerns for Covid. She had Covid in August 2020. All other review of systems reviewed and negative except as stated. 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 NTG SL PMO PROJECT MANAGER: No Associated Symptoms: dizziness, shortness of breath, syncope (pre-syncope) Allergies and Home Medications Allergies Coded Allergies: Penicillins (Verified Allergy, Intermediate, RASH, 11/03/14) Patient Home Medication List Home Medication List Reviewed: Yes Amlodipine Besylate (Amlodipine Besylate) 2.5 Mg Tablet, 2.5 MG PO DAILY, (Reported) Entered as Reported by: NAVJOT FRANCIS on 03/22/21 1356 Last Action: New Order Aspirin (Aspirin Ec Tab) 81 Mg Tabec, 81 MG PO DAILY, (Reported) Entered as Reported by: CORTES SMILEY on 04/19/14 0916 Atorvastatin Calcium (Atorvastatin Calcium) 40 Mg Tablet, 40 MG PO HS, (Report ed) Entered as Reported by: CHIKIS WHITFIELD on 11/03/14 1340 Clopidogrel Bisulfate (Clopidogrel) 75 Mg Tablet, 75 MG PO DAILY, (Reported) Entered as Reported by: CHIKIS WHITFIELD on 11/03/14 1340 Furosemide (Furosemide) 80 Mg Tablet, 80 MG PO DAILY Prescribed by: SHARMILA DANGELO on 11/05/15 1303 Last Action: Last Taken Edited Lisinopril (Lisinopril) 40 Mg Tablet, 40 MG PO DAILY, (Reported) Entered as Reported by: CHIKIS WHITFIELD on 11/03/14 1340 Metoprolol Succinate (Metoprolol Succinate) 100 Mg Tab.er.24h, 100 MG PO BID, (Reported) Entered as Reported by: EVANGELINA MAGANA on 11/04/15 2147 Last Action: Last Taken Edited Ondansetron (Ondansetron Odt) 4 Mg Tab.rapdis, 4 MG SL Q4H PRN for NAUSEA/VOMITING Prescribed by: JEAN SCHULTE on 02/15/20 1409 Pantoprazole Sodium (Protonix) 40 Mg Tablet.dr, 40 MG PO DAILY Prescribed by: JULES DIAZ on 11/04/14 1317 Potassium Chloride (K-Tab ER) 10 Meq Tablet.er, 10 MEQ PO DAILY Prescribed by: SHARMILA DANGELO on 11/05/15 1303 Last Action: Last Taken Edited Tramadol HCl (Ultram) 50 Mg Tablet, 50 MG PO Q6H PRN for PAIN-BREAKTHROUGH Prescribed by: JEAN SCHULTE on 02/15/20 1410 Discontinued Medications Ciprofloxacin HCl (Cipro) 500 Mg Tablet, 500 MG PO BID Discontinued Reason: No Longer Taking Prescribed by: JEAN SCHULTE on 02/15/20 1414 Last Action: Discontinued Prednisone (Prednisone) 20 Mg Tab, 40 MG PO DAILY Discontinued Reason: No Longer Taking Prescribed by: JEAN SCHULTE on 02/15/20 1409 Last Action: Discontinued Review of Systems Review of Systems Constitutional: see HPI EENTM: No Symptoms Reported Respiratory: SOA With Exertion Cardiovascular: Chest Pain (epigastric) Genitourinary: No Symptoms Reported Musculoskeletal: no symptoms reported Skin: no symptoms reported Psychiatric/Neurological: No Symptoms Reported All Other Systems Reviewed Negative Unless Noted: Yes Past Odxdiod-Rmqkae-Mgcdqc Hx Immunizations Up To Date Tetanus Booster (TDap): Unknown Seasonal Allergies Seasonal Allergies: No Past Medical History Surgeries: Yes (CORONARY STENT, LAP JOHNATHON, TOTAL HYSTERECTOMY) Breast, Cardiac, CABG, Section, Coronary Stent, Gallbladder, Hysterectomy, Oophorectomy, Orthopedic Respiratory: Yes Pneumonia Currently Using CPAP: No Currently Using BIPAP: No Cardiac: Yes (CABG (2011), X2 MA, STENTS, DEFIBRILLATOR, CARDIOMEGALY ) Cardiomyopathy, Coronary Artery Disease, Deep Vein Thrombosis, Heart Attack, High Cholesterol, Hypertension, Irregular Heartbeat, Syncope Neurological: No Reproductive Disorders: Yes (CERVICAL DYSPLASIA ) 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 Genitourinary: Yes (History pyelonephritis) Kidney Infection, Renal Failure, UTI-Chronic Gastrointestinal: Yes (abdominal aneurysm) Gastroesophageal Reflux, Diverticulosis, Hiatal Hernia Musculoskeletal: Yes ( CERVICAL STENOSIS, SEVERE CHRONIC BRUSITIS RT SHOULDER) Arthritis, Chronic Back Pain Endocrine: No Cancer: No (CERVICAL CLASS I DYSPLASIA ) Cervical Psychosocial: Yes Anxiety, Depression Integumentary: No Blood Disorders: Yes (DVT RT BRACHIAL ) Adverse Reaction/Blood Tranf: No Family Medical History Cardiovascular disease G8 SISTER DVT 19 MOTHER FH: bladder cancer 19 FATHER, FH: colon cancer 19 FATHER, FH: liver cancer G8 BROTHER, HEMORRHAGIC STROKE 19 MOTHER No Pertinent Family Hx Physical Exam Vital Signs Vital Signs - First Documented 03/22/21 13:39 Temp 35.9 Pulse 97 Resp 15 B/P (MAP) 115/97 (103) Pulse Ox 99 O2 Delivery Room Air Capillary Refill : Less Than 3 Seconds Height, Weight, BMI Height: 5'5.00" Weight: 158lbs. 0.0oz. 71.702260eq; 22.00 BMI Method:Stated General Appearance: No Apparent Distress, WD/WN HEENT: PERRL/EOMI Neck: Normal Inspection Respiratory: Lungs Clear, Normal Breath Sounds, No Accessory Muscle Use, No Respiratory Distress, Other (is a little dyspneic with talking) Cardiovascular: Normal Peripheral Pulses, Other (irregular - multiple PVC's observed on cardiac moonitor) Gastrointestinal: Normal Bowel Sounds, Non Tender, Soft Extremity: Normal Capillary Refill, Normal Inspection, Normal Range of Motion, Non Tender, No Calf Tenderness, Pedal Edema (trace bilateral) Neurologic/Psychiatric: Alert, Oriented x3, No Motor/Sensory Deficits, Normal Mood/Affect, 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 Norm as Tested Skin: Normal Color, Warm/Dry Progress/Results/Core Measures Results/Orders Lab Results Laboratory Tests Test 03/22/21 13:49 Range/Units White Blood Count 8.3 4.3-11.0 10^3/uL Red Blood Count 4.43 3.80-5.11 10^6/uL Hemoglobin 11.4 L 11.5-16.0 g/dL Hematocrit 39 35-52 % Mean Corpuscular Volume 87 80-99 fL Mean Corpuscular Hemoglobin 26 25-34 pg Mean Corpuscular Hemoglobin Concent 30 L 32-36 g/dL Red Cell Distribution Width 18.6 H 10.0-14.5 % Platelet Count 314 130-400 10^3/uL Mean Platelet Volume 11.7 9.0-12.2 fL Immature Granulocyte % (Auto) 1 % Neutrophils (%) (Auto) 64 42-75 % Lymphocytes (%) (Auto) 24 12-44 % Monocytes (%) (Auto) 8 0-12 % Eosinophils (%) (Auto) 3 0-10 % Basophils (%) (Auto) 1 0-10 % Neutrophils # (Auto) 5.3 1.8-7.8 10^3/uL Lymphocytes # (Auto) 2.0 1.0-4.0 10^3/uL Monocytes # (Auto) 0.6 0.0-1.0 10^3/uL Eosinophils # (Auto) 0.2 0.0-0.3 10^3/uL Basophils # (Auto) 0.1 0.0-0.1 10^3/uL Immature Granulocyte # (Auto) 0.0 0.0-0.1 10^3/uL Prothrombin Time 13.9 12.2-14.7 SEC INR Comment 1.0 0.8-1.4 Activated Partial Thromboplast Time 27 24-35 SEC Sodium Level 141 135-145 MMOL/L Potassium Level 4.5 3.6-5.0 MMOL/L Chloride Level 107 98-107 MMOL/L Carbon Dioxide Level 22 21-32 MMOL/L Anion Gap 12 5-14 MMOL/L Blood Urea Nitrogen 28 H 7-18 MG/DL Creatinine 1.19 0.60-1.30 MG/DL Estimat Glomerular Filtration Rate 52 BUN/Creatinine Ratio 24 Glucose Level 152 H 70-105 MG/DL Calcium Level 8.7 8.5-10.1 MG/DL Corrected Calcium 9.2 8.5-10.1 MG/DL Magnesium Level 1.9 1.6-2.4 MG/DL Total Bilirubin 1.3 H 0.1-1.0 MG/DL Aspartate Amino Transf (AST/SGOT) 22 5-34 U/L Alanine Aminotransferase (ALT/SGPT) 17 0-55 U/L Alkaline Phosphatase 131 40-136 U/L Troponin I < 0.028 <0.028 NG/ML B-Type Natriuretic Peptide 2572.4 H <100.0 PG/ML Total Protein 6.6 6.4-8.2 GM/DL Albumin 3.4 3.2-4.5 GM/DL My Orders Orders - GHISLAINE DAVIS MD Ed Iv/Invasive Line Start (03/22/21 14:04) Cbc With Automated Diff (03/22/21 14:04) Comprehensive Metabolic Panel (03/22/21 14:04) Protime With Inr (03/22/21 14:04) Partial Thromboplastin Time (03/22/21 14:04) Magnesium (03/22/21 14:04) Chest 1 View, Ap/Pa Only (03/22/21 14:04) Ekg Tracing (03/22/21 14:04) Troponin I Pershing (03/22/21 14:04) Bnp Fredy (03/22/21 14:04) Aspirin Chewable Tablet (Baby Aspirin Ch (03/22/21 14:15) Medications Given in ED Current Medications Medications Dose Ordered Sig/Travis Route Start Time Stop Time Status Last Admin Dose Admin Aspirin 243 mg ONCE ONCE PO 03/22/21 14:15 03/22/21 14:16 DC 03/22/21 14:10 243 MG Vital Signs/I&O 03/22/21 13:39 Temp 35.9 Pulse 97 Resp 15 B/P (MAP) 115/97 (103) Pulse Ox 99 O2 Delivery Room Air Blood Pressure Mean: 103 Admisison Planning May Need Admission (Planning): 15:18 Progress Progress Note : Time: 15:18 Progress Note Case discussed with Dr. 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 Will admit to cardiac stepdown unit, observation. He advised a dose of Lasix here in the department will repeat this in the morning. He states to decrease her metoprolol from 200 to 100 mg twice daily. We will repeat her troponin at 9 PM. I also spoke with Dr. Zazueta, she is agreeable with admission observation to the cardiac stepdown unit. I have talked to the patient about all of her results. She verbalized understanding, is quite comfortable as long as she is not getting up and exerting herself. Notably her BNP is in the 2500 range which is signifi cantly higher than a remote BNP measurement that was done back in 2014. Initial ECG Impression Date: Mar 22, 2021 Initial ECG Impression Time: 13:42 Initial ECG Rate: 99 Initial ECG Rhythm: Normal Sinus Comment multiple PVC's, inverted T waves inferior leads; ST depression 0-1mm lead 1; inverted T waves across the precordium from lead V3-6; significant ectopy Diagnostic Imaging Diagonstic Imaging: Xray Plain Films/CT/US/NM/MRI: chest Comments [facility] [place], [place] NAME: [facility] REC#: [id number] PT STATUS: REG ER : 1960 PHYSICIAN: GHISLAINE DAVIS MD ADMIT DATE: 03/22/21/ER Signed Date of Exam:03/22/21 CHEST 1 VIEW, AP/PA ONLY INDICATION: Chest pain, shortness of breath. EXAMINATION: Portable chest at 2:19 PM. FINDINGS: There are postop changes from CABG surgery. There is a unipolar pacemaker with an ICD. The heart is mildly enlarged. The pulmonary vascularity is normal. The lungs are clear. There are no effusions or pneumothoraces. IMPRESSION: Post surgical changes in the chest. Mild cardiomegaly without evidence of pulmonary venous hypertension. Dictated by: Dictated on workstation # [id number] Dict: 03/22/21 1420 Trans: 03/22/21 1449 [id number] Interpreted by: JOLENE ESTES MD Electronically signed by: JOLENE ESTES MD 03/22/21 1449 Departure Communication (Admissions) Time/Spoke to Admitting Phy: 15:[address] Zazueta Time/Spoke to Consulting Phy: 15:[address] Dangelo Impression Primary Impression: Chest pain Qualified Codes: R07.9 - Chest pain, unspecified Additional Impression: Acute exacerbation of CHF (congestive heart failure) Qualified Codes: I50.9 - Heart failure, unspecified Disposition: ADMITTED INPATIENT Condition: Stable Admissions Decision to Admit Reason: Admit from ER (General) Decision to Admit/Date: Mar 22, 2021 Time/Decision to Admit Time: 15:20 Departure-Patient Inst. Referrals: [facility] (PCP/Family) Primary Care Physician GHISLAINE DAVIS MD Mar 22, 2021 14:04
[2021-03-22 14:13] LABS: BASOPHILS # (AUTO) 0.1 10^3/uL (0.0-0.1); BASOPHILS % (AUTO) 1 % (0-10); EOSINOPHILS # (AUTO) 0.2 10^3/uL (0.0-0.3); EOSINOPHILS % (AUTO) 3 % (0-10); HEMATOCRIT 39 % (35-52); HEMOGLOBIN 11.4 g/dL (11.5-16.0); LYMPHOCYTES % (AUTO) 24 % (12-44); MEAN CORPUSCULAR HEMOGLOBIN 26 pg (25-34); MEAN CORPUSCULAR HGB CONC 30 g/dL (32-36); MEAN CORPUSCULAR VOLUME 87 fL (80-99); MEAN PLATELET VOLUME 11.7 fL (9.0-12.2); MONOCYTES # (AUTO) 0.6 10^3/uL (0.0-1.0); MONOCYTES % (AUTO) 8 % (0-12); NEUTROPHILS # (AUTO) 5.3 10^3/uL (1.8-7.8); NEUTROPHILS % (AUTO) 64 % (42-75); PLATELET COUNT 314 10^3/uL (130-400); WHITE BLOOD COUNT 8.3 10^3/uL (4.3-11.0)
[2021-03-22] MEDS ORDERED: ASPIRIN 81 MG CHEW (CHILDREN'S ASA) PO ONE (14:15)
[2021-03-22 14:17] LABS: ALBUMIN 3.4 GM/DL (3.2-4.5); CHLORIDE 107 MMOL/L (98-107); POTASSIUM 4.5 MMOL/L (3.6-5.0); SODIUM 141 MMOL/L (135-145)
[2021-03-22 14:19] LABS: CALCIUM 8.7 MG/DL (8.5-10.1); PROTHROMBIN TIME PATIENT 13.9 SEC (12.2-14.7)
[2021-03-22 14:20] LABS: GLUCOSE 152 MG/DL (70-105); TOTAL PROTEIN 6.6 GM/DL (6.4-8.2)
[2021-03-22 14:21] LABS: CARBON DIOXIDE 22 MMOL/L (21-32)
[2021-03-22 14:22] LABS: BILIRUBIN,TOTAL 1.3 MG/DL (0.1-1.0)
[2021-03-22 14:23] LABS: ALKALINE PHOSPHATASE 131 U/L (40-136)
[2021-03-22 14:24] LABS: CREATININE SERUM 1.19 MG/DL (0.60-1.30); GFR ESTIMATED 52
[2021-03-22 14:25] LABS: BUN/CREATININE RATIO 24
--- NOTE | 2021-03-22 14:25 | Diagnostic Imaging Report ---
INDICATION: Chest pain, shortness of breath. EXAMINATION: Portable chest at 2:19 PM. FINDINGS: There are postop changes from CABG surgery. There is a unipolar pacemaker with an ICD. The heart is mildly enlarged. The pulmonary vascularity is normal. The lungs are clear. There are no effusions or pneumothoraces. IMPRESSION: Post surgical changes in the chest. Mild cardiomegaly without evidence of pulmonary venous hypertension. Dictated by: Dictated on workstation # [id number]
[2021-03-22 14:26] LABS: ALANINE AMINOTRANSFERASE 17 U/L (0-55); MAGNESIUM 1.9 MG/DL (1.6-2.4)
[2021-03-22] MEDS ORDERED: FUROSEMIDE 40 MG/4 ML INJ (LASIX) IVP ONE (15:45)
--- NOTE | 2021-03-22 15:48 | Consultation-Cardiology ---
HPI-Cardiology Cardiology Consultation: Date of Consultation 03/22/21 Time Seen by a Provider: 15:30 Date of Admission 03/22/21 Attending Physician Admitting Physician [place] Consulting Physician SHARMILA RAYMUNDO MD, MA, FACP, FACC, FSCAI, CCDS HPI: Chief Complaint: CC: Chest discomfort, dizziness, shortness of breath HPI 60 yo woman who presents with chest discomfort and dizziness and shortness of breath that occurs with posture change from recumbent to upright. Also, shortness of breath with exertion. Chest discomfort sharp, L infra-mammary, lasting several seconds, w/o radiation, not experienced before, mild to mod in intensity. No syncope. Occ, intermittent palp. No swelling. Some gen malaise present Review of Systems-Cardiology Review of Systems Constitutional: malaise; No weight loss, No weight gain Eyes: No vision change Ears/Nose/Throat: No ear discharge, No nasal drainage, No recent hearing loss Respiratory: As described under HPI Cardiovascular: As described under HPI Gastrointestinal: No diarrhea, No nausea, No vomiting Genitourinary: No dysuria, No hematuria, No urine frequency changes Musculoskeletal: No back pain, No joint pain Skin: No ulcerations Psychiatric/Neurological: No seizure, No focal weakness, No syncope Hematologic: No bleeding abnormalities All Other Systems Reviewed Negative Unless Noted: Yes ZVM-Qflrta-Owmokz Hx Patient Social History Smoking Status: Current Everyday Smoker Have you traveled recently?: No Alcohol Use?: No Pt feels they are or have been: No Tobacco type used: Cigarettes Immunizations Up To Date Tetanus Booster (TDap): Unknown Date of Pneumonia Vaccine: Aug 24, 2010 Date of Influenza Vaccine: Apr 20, 2014 Past Medical History PMH As described under Assessment. Family Medical History Family Medical History: She reports her mother had a cardiac arrhythmia and CVA. Family History: Cardiovascular disease G8 SISTER DVT 19 MOTHER FH: bladder cancer 19 FATHER, FH: colon cancer 19 FATHER, FH: liver cancer G8 BROTHER, HEMORRHAGIC STROKE 19 MOTHER Allergies and Home Medications Allergies Coded Allergies: Penicillins (Verified Allergy, Intermediate, RASH, 11/03/14) Patient Home Medication List Home Medication List Reviewed: Yes Amlodipine Besylate (Amlodipine Besylate) 2.5 Mg Tablet, 2.5 MG PO DAILY, (Reported) Entered as Reported by: NAVJOT FRANCIS on 03/22/21 1356 Last Action: New Order Aspirin (Aspirin Ec Tab) 81 Mg Tabec, 81 MG PO DAILY, (Reported) Entered as Reported by: CORTES SMILEY on 04/19/14 0916 Atorvastatin Calcium (Atorvastatin Calcium) 40 Mg Tablet, 40 MG PO HS, (Reported) Entered as Reported by: CHIKIS WHITFIELD on 11/03/14 1340 Clopidogrel Bisulfate (Clopidogrel) 75 Mg Tablet, 75 MG PO DAILY, (Reported) Entered as Reported by: CHIKIS WHITFIELD on 11/03/14 1340 Furosemide (Furosemide) 80 Mg Tablet, 80 MG PO DAILY Prescribed by: SHARMILA RAYMUNDO on 11/05/15 1303 Last Action: Last Taken Edited Lisinopril (Lisinopril) 40 Mg Tablet, 40 MG PO DAILY, (Reported) Entered as Reported by: CHIKIS WHITFIELD on 11/03/14 1340 Metoprolol Succinate (Metoprolol Succinate) 100 Mg Tab.er.24h, 100 MG PO BID, (Reported) Entered as Reported by: EVANGELINA MAGANA on 11/04/152146 Last Action: Last Taken Edited Ondansetron (Ondansetron Odt) 4 Mg Tab.rapdis, 4 MG SL Q4H PRN for NAUSEA/VOMITING Prescribed by: JEAN SCHULTE on 02/15/20 1409 Pantoprazole Sodium (Protonix) 40 Mg Tablet.dr, 40 MG PO DAILY Prescribed by: JULES DIAZ on 11/04/14 1317 Potassium Chloride (K-Tab ER) 10 Meq Tablet.er, 10 MEQ PO DAILY Prescribed by: SHARMILA RAYMUNDO on 11/05/15 1303 Last Action: Last Taken Edited Tramadol HCl (Ultram) 50 Mg Tablet, 50 MG PO Q6H PRN for PAIN-BREAKTHROUGH Prescribed by: JEAN SCHULTE on 02/15/20 1410 Discontinued Medications Ciprofloxacin HCl (Cipro) 500 Mg Tablet, 500 MG PO BID Discontinued Reason: No Longer Taking Prescribed by: JEAN SCHULTE on 02/15/20 1414 Last Action: Discontinued Prednisone (Prednisone) 20 Mg Tab, 40 MG PO DAILY Discontinued Reason: No Longer Taking Prescribed by: JEAN SCHULTE on 02/15/20 1409 Last Action: Discontinued Physical Exam-Cardiology Physical Exam Vital Signs/I&O 03/22/21 13:39 Temp 35.9 Pulse 97 Resp 15 B/P (MAP) 115/97 (103) Pulse Ox 99 O2 Delivery Room Air Capillary Refill : Less Than 3 Seconds Constitutional: AAO x 3, well-developed, well-nourished HEENT: EOMI, hearing is well preserved; No xanthelasmas are seen Neck: carotid pulses are 2 + bilaterally, with good upstrokes Respiratory: No accessory muscle use; other (good, bilateral air entry; a few fine basal crackles) Cardiovascular: irregularly irregular, S1 and S2, systolic murmur (soft FLAKO at card base) Gastrointestinal: No tender; soft; No guarding, No rebound; audible bowel sounds Extremities: No clubbing, No cyanosis, No significant edema Neurologic/Psychiatric: oriented x 3, other (moves all her limbs equally) Skin: warm/dry; No cyanosis, No diaphoresis, No rash on exposed areas, No ulcerations on exposed areas Data Review Labs Laboratory Tests 03/22/21 13:49: White Blood Count 8.3, Red Blood Count 4.43, Hemoglobin 11.4L, Hematocrit 39, Mean Corpuscular Volume 87, Mean Corpuscular Hemoglobin 26, Mean Corpuscular Hemoglobin Concent 30L, Red Cell Distribution Width 18.6H, Platelet Count 314, Mean Platelet Volume 11.7, Immature Granulocyte % (Auto) 1, Neutrophils (%) (Auto) 64, Lymphocytes (%) (Auto) 24, Monocytes (%) (Auto) 8, Eosinophils (%) (Auto) 3, Basophils (%) (Auto) 1, Neutrophils # (Auto) 5.3, Lymphocytes # (Auto) 2.0, Monocytes # (Auto) 0.6, Eosinophils # (Auto) 0.2, Basophils # (Auto) 0.1, Immature Granulocyte # (Auto) 0.0, Prothrombin Time 13.9, INR Comment 1.0, Activated Partial Thromboplast Time 27, Sodium Level 141, Potassium Level 4.5, Chloride Level 107, Carbon Dioxide Level 22, Anion Gap 12, Blood Urea Nitrogen 28H, Creatinine 1.19, Estimat Glomerular Filtration Rate 52, BUN/Creatinine Ratio 24, Glucose Level 152H, Calcium Level 8.7, Corrected Calcium 9.2, Magnesium Level 1.9, Total Bilirubin 1.3H, Aspartate Amino Transf (AST/SGOT) 22, Alanine Aminotransferase (ALT/SGPT) 17, Alkaline Phosphatase 131, Troponin I < 0.028, B-Type Natriuretic Peptide 2572.4H, Total Protein 6.6, Albumin 3.4 Laboratory Tests 03/22/21 13:49 Laboratory Tests 03/22/21 13:49 A/P-Cardiology Assessment/Admission Diagnosis Non-specific chest discomfort of undetermined etiology Postural dizziness, likely postural hypotension due to meds Decompensated, acute on chronic, HFrEF Ventricular arrhythmia - Frequent PVC's seen on EKG of Mar 2019. Sep 2019 - Holter study of Oct 2019 showed NSR; frequent PVC's (PVC burden 14.3%); one 43 beat run of NSVT at approx 150 bpm; no significant bradycardia - ECG of 01/05/21: NSR and frequent PVCs, including a triplet - referred to EP at [facility], but she has not followed up yet Tobaccoism - Chronic smoker of cigarettes (currently about 6 cigs per day) - cessation advised Suspected sleep apnea - has not had sleep studies done PAD and h/o AAA - Seg pressures of 12/24/18 show mod bilat PAD (non-critical) - s/p AAA stenting by Dr Farmer in Feb 2021 Chronic, bilat leg swelling: - Leg venous Doppler of 12/24/18 did not show any DVT Coronary artery disease: - h/o coronary artery bypass surgery, consisting of saphenous vein to OM, saphenous ein to the posterior descending, radial arteries to the diagonal and left anterior internal mammary artery to LAD in June [address] Angelo at [facility] in [place], [place]. - Cardiac cath on 12/29/19: mod sev mid-vessel stenosis of LAD, mod mid-LCX stenosis, mod stenosis of distal SATISH, mid-vessel occlusion of RCA; occluded aortocoronary grafts known to be to RCA, OM, diag; patent MCCLELLAND graft to LAD; ant lat and apical hypkinesis; posterbasal and diaphragmatic akinesis; LVEF 20%; nomal LVEDP - report two cor stents by Dr Farmer at [facility] in Feb 2021, details unknown ICM - Echocardiogram of Oct 12, 2019 shows dilated ischemic cardiomyopathy with LVEF approx 25-30%; LA is mod to severely dilated; mod to severe MR; mod TR; PASP 35- 40mmHg - S/P single chamber defib implanted on 08-24-14, functioning normally per interrogation of 01-25-2021 HLP - statin therapy HTN, by history Chronic anxiety - currently controlled Ortho - Cervical stenosis which is followed by Dr. Jasso Carotid dz - Carotid u/s of 01/07/19 showed mild bilat carotid arterial disease, without evidence of hemodynamic significance Probable GERD - improved with empiric treatment with PPIs CKD stage 3 Discussion and Recomendations * iv diuretics * Continue DAPT * D/c amlodipine * Reduce beta-yuniel * Tele * Monitor labs * Further recs to be based on hosp course Clinical Quality Measures AMI/AHF: ASA po Prior to arrival: Yes SHARMILA RAYMUNDO MD FACP FACC CCDS Mar 22, 2021 15:48
[2021-03-22] MEDS ORDERED: PATIENT MAY USE OWN MEDS, ALL MC SCH (17:15)
[2021-03-22 17:54] VITALS: BP 115/97
[2021-03-22] MEDS ORDERED: RT-ALBUTEROL SULF 2.5 MG/3 ML PRE-MIX VIAL INH PRN (18:00)
[2021-03-22] MEDS ORDERED: CATHETER FLUSH 10 ML SYR IV PRN (18:15)
[2021-03-22] MEDS: meTOprolol SUCCINATE 100 MG (TOPROL XL) TAB PO SCH (20:54)
[2021-03-22] MEDS: CATHETER FLUSH 10 ML SYR IV SCH (22:00)
[2021-03-23 05:47] LABS: CALCIUM 8.5 MG/DL (8.5-10.1)
[2021-03-23 05:52] LABS: CREATININE SERUM 1.09 MG/DL (0.60-1.30)
[2021-03-23] MEDS: CATHETER FLUSH 10 ML SYR IV SCH ×3 (06:23→22:00)
[2021-03-23] MEDS: FUROSEMIDE 40 MG/4 ML INJ (LASIX) IV SCH (06:24)
[2021-03-23] MEDS: meTOprolol SUCCINATE 100 MG (TOPROL XL) TAB PO SCH (07:47)
--- NOTE | 2021-03-23 09:25 | Progress Note - Cardiology ---
Cardiology SOAP Progress Note Subjective: Continues to feel unwell Dizzy and lightheaded Continues to feel SOB Objective: I&O/Vital Signs 03/23/21 03/24/21 03/24/21 03/24/21 21:00 00:00 01:00 04:00 Pulse 107 106 113 B/P (MAP) 99/78 120/82 Pulse Ox 99 O2 Delivery Room Air Room Air Room Air 03/24/21 03/24/21 03/24/21 07:00 08:00 08:05 Temp 36.9 Pulse 115 108 Resp 16 B/P (MAP) 116/59 Pulse Ox 96 O2 Delivery Room Air Room Air O2 Flow Rate 0.00 03/24/21 00:00 Intake Total 1420 ml Output Total 1500 ml Balance -80 ml Weight (Pounds): 158 Weight (Ounces): 0.0 Weight (Calculated Kilograms): 71.420151 Constitutional: AAO x 3, well-developed, well-nourished Respiratory: No accessory muscle use; other (good, bilateral air entry; a few fine basal crackles) Cardiovascular: irregularly irregular, S1 and S2, systolic murmur (soft FLAKO at card base) Gastrointestional: No tender; soft; No guarding, No rebound; audible bowel sounds Extremities: No clubbing, No cyanosis, No significant edema Neurologic/Psychiatric: oriented x 3, other (moves all her limbs equally) Skin: warm/dry; No cyanosis, No diaphoresis, No rash on exposed areas, No ulcerations on exposed areas Results/Procedures: Labs Laboratory Tests 03/24/21 04:10: Sodium Level 139, Potassium Level 3.6, Chloride Level 104, Carbon Dioxide Level 21, Anion Gap 14, Blood Urea Nitrogen 26H, Creatinine 1.06, Estimat Glomerular Filtration Rate 59, BUN/Creatinine Ratio 25, Glucose Level 99, Calcium Level 8.2L, Magnesium Level 1.8, Thyroid Stimulating Hormone (TSH) 1.19 A/P: Assessment: Non-specific chest discomfort of undetermined etiology Postural dizziness, likely postural hypotension due to meds Decompensated, acute on chronic, HFrEF Ventricular arrhythmia - Frequent PVC's seen on EKG of Mar 2019. Sep 2019 - Holter study of Oct 2019 showed NSR; frequent PVC's (PVC burden 14.3%); one 43 beat run of NSVT at approx 150 bpm; no significant bradycardia - ECG of 01/05/21: NSR and frequent PVCs, including a triplet - referred to EP at [facility], but she has not followed up yet Tobaccoism - Chronic smoker of cigarettes (currently about 6 cigs per day) - cessation advised Suspected sleep apnea - has not had sleep studies done PAD and h/o AAA - Seg pressures of 12/24/18 show mod bilat PAD (non-critical) - s/p AAA endograft by Dr Farmer on 02-16-21 at [facility] Chronic, bilat leg swelling: - Leg venous Doppler of 12/24/18 did not show any DVT Coronary artery disease: - h/o coronary artery bypass surgery, consisting of saphenous vein to OM, saphenous ein to the posterior descending, radial arteries to the diagonal and left anterior internal mammary artery to LAD in June [address] Angelo at [facility] in [place], [place]. - Cardiac cath on 12/29/19: mod sev mid-vessel stenosis of LAD, mod mid-LCX stenosis, mod stenosis of distal SATISH, mid-vessel occlusion of RCA; occluded aortocoronary grafts known to be to RCA, OM, diag; patent MCCLELLAND graft to LAD; ant lat and apical hypkinesis; posterbasal and diaphragmatic akinesis; LVEF 20%; nomal LVEDP - Dr Farmer at [facility] in Feb 2021, details unknown ICM - Echocardiogram of Oct 12, 2019 shows dilated ischemic cardiomyopathy with LVEF approx 25-30%; LA is mod to severely dilated; mod to severe MR; mod TR; PASP 35- 40mmHg - S/P single chamber defib implanted on 08-24-14, functioning normally per interrogation of 01-25-2021 HLP - statin therapy HTN, by history Chronic anxiety - currently controlled Ortho - Cervical stenosis which is followed by Dr. Jasso Carotid dz - Carotid u/s of 01/07/19 showed mild bilat carotid arterial disease, without evidence of hemodynamic significance Probable GERD - improved with empiric treatment with PPIs CKD stage 3 Plan: * Continue iv diuretics and change to oral * Replace electrolytes as indicated * Continue DAPT * Freq PVC's for which she is symptomatic - start Amiodarone * Further Reduce beta-yuniel d/t low normal BP for which she feels unwell * Tele * Monitor labs Clinical Quality Measures AMI/AHF: ASA po Prior to arrival: Yes (81 mg) JULES DIAZ Mar 23, 2021 09:25
[2021-03-23] MEDS ORDERED: ASPI-1238 PO (09:50)
[2021-03-23] MEDS ORDERED: METO200T48 PO (09:50)
[2021-03-23] MEDS ORDERED: FURO40TA4 PO (09:51)
[2021-03-23] MEDS ORDERED: PANT40TA52 PO (09:51)
[2021-03-23] MEDS ORDERED: CLOP75TA69 PO (09:51)
[2021-03-23] MEDS ORDERED: POTA10CA43 PO (09:51)
[2021-03-23] MEDS ORDERED: AMLO2.5T4 PO (09:54)
[2021-03-23] MEDS ORDERED: AMIODARONE 200 MG (CORDARONE) TAB PO NR (10:00)
[2021-03-23] MEDS ORDERED: CLOPIDOGREL 75 MG (PLAVIX) TABLET ONE (10:22)
[2021-03-23] MEDS ORDERED: ASPIRIN 81 MG CHEW (CHILDREN'S ASA) ONE (10:22)
--- NOTE | 2021-03-23 10:24 | Progress Note - Cardiology ---
Cardiology SOAP Progress Note Subjective: Postural dizziness still present No cp or palp or syncope or shortness of breath at rest No n/v/d Some gen malaise and weakness present Objective: I&O/Vital Signs 03/23/21 03/23/21 03/23/21 03/23/21 00:00 00:00 00:41 01:00 Temp 36.3 Pulse 99 62 Resp 20 B/P (MAP) 113/79 Pulse Ox 99 O2 Delivery Room Air Room Air 03/23/21 03/23/21 03/23/21 03/23/21 04:00 04:00 04:41 07:00 Temp 36.5 Pulse 87 114 Resp 17 B/P (MAP) 100/72 Pulse Ox 99 O2 Delivery Room Air Room Air 03/23/21 03/23/21 08:00 08:00 Temp 36.8 Pulse 74 Resp 16 B/P (MAP) 117/90 Pulse Ox 99 98 O2 Delivery Room Air Room Air 03/23/21 00:00 Intake Total 360 ml Balance 360 ml Weight (Pounds): 158 Weight (Ounces): 0.0 Weight (Calculated Kilograms): 71.445244 Constitutional: AAO x 3, well-developed, well-nourished Respiratory: No accessory muscle use; other (good, bilateral air entry; a few fine basal crackles) Cardiovascular: irregularly irregular, S1 and S2, systolic murmur (soft FLAKO at card base) Gastrointestional: No tender; soft; No guarding, No rebound; audible bowel sounds Extremities: No clubbing, No cyanosis, No significant edema Neurologic/Psychiatric: oriented x 3, other (moves all her limbs equally) Skin: warm/dry; No cyanosis, No diaphoresis, No rash on exposed areas, No ulcerations on exposed areas Results/Procedures: Labs Laboratory Tests 03/22/21 13:49: White Blood Count 8.3, Red Blood Count 4.43, Hemoglobin 11.4L, Hematocrit 39, Mean Corpuscular Volume 87, Mean Corpuscular Hemoglobin 26, Mean Corpuscular Hemoglobin Concent 30L, Red Cell Distribution Width 18.6H, Platelet Count 314, Mean Platelet Volume 11.7, Immature Granulocyte % (Auto) 1, Neutrophils (%) (Auto) 64, Lymphocytes (%) (Auto) 24, Monocytes (%) (Auto) 8, Eosinophils (%) (Auto) 3, Basophils (%) (Auto) 1, Neutrophils # (Auto) 5.3, Lymphocytes # (Auto) 2.0, Monocytes # (Auto) 0.6, Eosinophils # (Auto) 0.2, Basophils # (Auto) 0.1, Immature Granulocyte # (Auto) 0.0, Prothrombin Time 13.9, INR Comment 1.0, Activated Partial Thromboplast Time 27, Sodium Level 141, Potassium Level 4.5, Chloride Level 107, Carbon Dioxide Level 22, Anion Gap 12, Blood Urea Nitrogen 28H, Creatinine 1.19, Estimat Glomerular Filtration Rate 52, BUN/Creatinine Ratio 24, Glucose Level 152H, Calcium Level 8.7, Corrected Calcium 9.2, Magnesium Level 1.9, Total Bilirubin 1.3H, Aspartate Amino Transf (AST/SGOT) 22, Alanine Aminotransferase (ALT/SGPT) 17, Alkaline Phosphatase 131, Troponin I < 0.028, B-Type Natriuretic Peptide 2572.4H, Total Protein 6.6, Albumin 3.4 03/22/21 21:06: Troponin I < 0.028 03/23/21 04:45: Sodium Level 139, Potassium Level 4.0, Chloride Level 104, Carbon Dioxide Level 22, Anion Gap 13, Blood Urea Nitrogen 25H, Creatinine 1.09, Estimat Glomerular Filtration Rate 57, BUN/Creatinine Ratio 23, Glucose Level 101, Calcium Level 8.5 A/P: Assessment: Non-specific chest discomfort of undetermined etiology, no evidence of ACS Postural dizziness, likely postural hypotension due to meds Decompensated, acute on chronic, HFrEF Ventricular arrhythmia - Frequent PVC's seen on EKG of Mar 2019. Sep 2019 - Holter study of Oct 2019 showed NSR; frequent PVC's (PVC burden 14.3%); one 43 beat run of NSVT at approx 150 bpm; no significant bradycardia - ECG of 01/05/21: NSR and frequent PVCs, including a triplet - referred to EP at [facility], but she has not followed up yet Tobaccoism - Chronic smoker of cigarettes (currently about 6 cigs per day) - cessation advised Suspected sleep apnea - has not had sleep studies done PAD and h/o AAA - Seg pressures of 12/24/18 show mod bilat PAD (non-critical) - s/p AAA endograft by Dr Farmer on 02-16-21 at [facility] Chronic, bilat leg swelling: - Leg venous Doppler of 12/24/18 did not show any DVT Coronary artery disease: - h/o coronary artery bypass surgery, consisting of saphenous vein to OM, saphenous ein to the posterior descending, radial arteries to the diagonal and left anterior internal mammary artery to LAD in June [address] Angelo at [facility] in [place], [place]. - Cardiac cath on 12/29/19: mod sev mid-vessel stenosis of LAD, mod mid-LCX stenosis, mod stenosis of distal SATISH, mid-vessel occlusion of RCA; occluded aortocoronary grafts known to be to RCA, OM, diag; patent MCCLELLAND graft to LAD; ant lat and apical hypkinesis; posterbasal and diaphragmatic akinesis; LVEF 20%; nomal LVEDP - Stents x 2 to the LCX-OM system by Dr Farmer in Feb 2021 ICM - Echocardiogram of Oct 12, 2019 shows dilated ischemic cardiomyopathy with LVEF approx 25-30%; LA is mod to severely dilated; mod to severe MR; mod TR; PASP 35- 40mmHg - S/P single chamber defib implanted on 08-24-14, functioning normally per interrogation of 01-25-2021 HLP - statin therapy HTN, by history Chronic anxiety - currently controlled Ortho - Cervical stenosis which is followed by Dr. Jasso Carotid dz - Carotid u/s of 01/07/19 showed mild bilat carotid arterial disease, without evidence of hemodynamic significance Probable GERD - improved with empiric treatment with PPIs CKD stage 3 Plan: * Continue diuretics and change to oral * Replace electrolytes as indicated * Continue DAPT * Freq PVC's - start Amiodarone * Further Reduce beta-yuniel d/t low normal BP (persistent dizziness) * Tele * Monitor labs Clinical Quality Measures AMI/AHF: ASA po Prior to arrival: Yes (81 mg) SHARMILA RAYMUNDO MD FACP FAC CCDS Mar 23, 2021 10:24
[2021-03-23] MEDS: CLOPIDOGREL 75 MG (PLAVIX) TABLET PO SCH (10:26)
[2021-03-23] MEDS: ASPIRIN 81 MG CHEW (CHILDREN'S ASA) PO SCH (10:26)
--- NOTE | 2021-03-23 10:34 | History & Physical ---
HPI History of Present Illness: 60 yo female came to hospital after 3 days of frequent PVCs and shortness of breath. She has a history of significant PVCs and has been referred to for electrophysiology evaluation, but she had influenza when she was supposed to go to her appointment, so she has to reschedule. Source: patient Date seen by provider: Mar 23, 2021 Time Seen by Provider: 10:30 Attending Physician Cristopher Zazueta MD PCP Center/[facility] [place] [facility] Consult Date of Admission Mar 22, 2021 at 15:12 Home Medications Home Medications Reviewed patient Home Medication Reconciliation performed by pharmacy medication reconciliations bicycle service technician and/or nursing. Patients Allergies have been reviewed. Allergies Coded Allergies: Penicillins (Verified Allergy, Intermediate, RASH, 11/03/14) YEP-[id number]-Ykyezj Hx Patient Social History Smoking Status: Current Everyday Smoker Recent Hopitalizations: No Alcohol Use?: No Tobacco type used: Cigarettes Have you traveled recently?: No Immunizations Up To Date Tetanus Booster (TDap): Unknown Influenza Vaccine Up-to-Date: No; Not Current Past Medical History PMHx: Coronary artery disease Peripheral vascular disease Hypertension Hyperlipidemia COVID19 infection 08/2020 SurgHx: Triple A repair with stenting in triple A and to kidney Coronary artery stenting multiple times x 2 Cholecystectomy Right knee arthroscopy Total hysterectomy with bilateral oophorectomy CABG Family Medical History Family History: Cardiovascular disease G8 SISTER DVT 19 MOTHER FH: bladder cancer 19 FATHER, FH: colon cancer 19 FATHER, FH: liver cancer G8 BROTHER, HEMORRHAGIC STROKE 19 MOTHER Review of Systems (CHC) Constitutional: No fever EENTM: nose congestion (coming and going) Respiratory: cough (mild occasional), short of breath Cardiovascular: chest pain (fullness along diaphragm line), palpitations Gastrointestinal: No abdominal pain, No constipation, No diarrhea, No nausea, No vomiting Genitourinary: No dysuria Musculoskeletal: No joint pain, No muscle pain Skin: No rash Reviewed Test Results Reviewed Test Results Lab Laboratory Tests Test 03/22/21 13:49 03/22/21 21:06 03/23/21 04:45 Range/Units White Blood Count 8.3 4.3-11.0 10^3/uL Red Blood Count 4.43 3.80-5.11 10^6/uL Hemoglobin 11.4 L 11.5-16.0 g/dL Hematocrit 39 35-52 % Mean Corpuscular Volume 87 80-99 fL Mean Corpuscular Hemoglobin 26 25-34 pg Mean Corpuscular Hemoglobin Concent 30 L 32-36 g/dL Red Cell Distribution Width 18.6 H 10.0-14.5 % Platelet Count 314 130-400 10^3/uL Mean Platelet Volume 11.7 9.0-12.2 fL Immature Granulocyte % (Auto) 1 % Neutrophils (%) (Auto) 64 42-75 % Lymphocytes (%) (Auto) 24 12-44 % Monocytes (%) (Auto) 8 0-12 % Eosinophils (%) (Auto) 3 0-10 % Basophils (%) (Auto) 1 0-10 % Neutrophils # (Auto) 5.3 1.8-7.8 10^3/uL Lymphocytes # (Auto) 2.0 1.0-4.0 10^3/uL Monocytes # (Auto) 0.6 0.0-1.0 10^3/uL Eosinophils # (Auto) 0.2 0.0-0.3 10^3/uL Basophils # (Auto) 0.1 0.0-0.1 10^3/uL Immature Granulocyte # (Auto) 0.0 0.0-0.1 10^3/uL Prothrombin Time 13.9 12.2-14.7 SEC INR Comment 1.0 0.8-1.4 Activated Partial Thromboplast Time 27 24-35 SEC Sodium Level 141 139 135-145 MMOL/L Potassium Level 4.5 4.0 3.6-5.0 MMOL/L Chloride Level 107 104 98-107 MMOL/L Carbon Dioxide Level 22 22 21-32 MMOL/L Anion Gap 12 13 5-14 MMOL/L Blood Urea Nitrogen 28 H 25 H 7-18 MG/DL Creatinine 1.19 1.09 0.60-1.30 MG/DL Estimat Glomerular Filtration Rate 52 57 BUN/Creatinine Ratio 24 23 Glucose Level 152 H 101 70-105 MG/DL Calcium Level 8.7 8.5 8.5-10.1 MG/DL Corrected Calcium 9.2 8.5-10.1 MG/DL Magnesium Level 1.9 1.6-2.4 MG/DL Total Bilirubin 1.3 H 0.1-1.0 MG/DL Aspartate Amino Transf (AST/SGOT) 22 5-34 U/L Alanine Aminotransferase (ALT/SGPT) 17 0-55 U/L Alkaline Phosphatase 131 40-136 U/L Troponin I < 0.028 < 0.028 <0.028 NG/ML B-Type Natriuretic Peptide 2572.4 H <100.0 PG/ML Total Protein 6.6 6.4-8.2 GM/DL Albumin 3.4 3.2-4.5 GM/DL Radiology CXR 03/22: IMPRESSION: Post surgical changes in the chest. Mild cardiomegaly without evidence of pulmonary venous hypertension. Physical Exam-(CHC) Physical Exam Vital Signs VS - Last 72 Hours, by Label 03/22/21 03/22/21 03/22/21 03/22/21 13:39 16:31 16:38 16:45 Temp 35.9 36.3 Pulse 97 87 90 101 Resp 15 16 17 B/P (MAP) 115/97 (103) 138/77 116/94 Pulse Ox 99 97 O2 Delivery Room Air Room Air Room Air 03/22/21 03/22/21 03/22/21 03/22/21 16:53 17:00 17:54 19:00 Temp 36.2 35.9 Pulse 97 86 Pulse Ox 99 98 99 O2 Delivery Room Air Room Air FiO2 21 03/22/21 03/22/21 03/22/21 03/23/21 20:00 20:00 20:41 00:00 Temp 36.1 36.3 Pulse 110 Resp 16 B/P (MAP) 116/70 Pulse Ox 99 O2 Delivery Room Air Room Air Room Air 03/23/21 03/23/21 03/23/21 03/23/21 00:00 00:41 01:00 04:00 Pulse 99 62 87 Resp 20 17 B/P (MAP) 113/79 100/72 Pulse Ox 99 O2 Delivery Room Air Room Air Room Air 03/23/21 03/23/21 03/23/21 03/23/21 04:00 04:41 07:00 08:00 Temp 36.5 Pulse 114 Pulse Ox 99 99 O2 Delivery Room Air Room Air 03/23/21 03/23/21 03/23/21 03/23/21 08:00 11:49 13:00 16:00 Temp 36.8 36.2 Pulse 74 112 63 111 Resp 16 14 B/P (MAP) 117/90 117/94 127/85 Pulse Ox 98 98 O2 Delivery Room Air Room Air Room Air 03/23/21 16:30 O2 Delivery Room Air O2 Flow Rate 0.00 Capillary Refill : Less Than 3 Seconds General Appearance: WD/WN, no apparent distress Respiratory: lungs clear, normal breath sounds Cardiovascular: no murmur, other (frequent irregular beats) Gastrointestinal: normal bowel sounds, non tender, soft Extremities: no pedal edema Neurologic/Psychiatric: alert, normal mood/affect, oriented x 3 Skin: normal color, warm/dry Assessment/Plan Assessment/Plan Admission Status: Observation (1) Acute exacerbation of CHF (congestive heart failure) Status: Acute Assessment & Plan: Appreciate Cardiology recommendations, receiving lasix, decreasing beta yuniel due to dizziness. Qualifiers: Qualified Codes: I50.23 - Acute on chronic systolic (congestive) heart failure (2) Chest pain Status: Acute Assessment & Plan: Troponins negative Qualifiers: Qualified Codes: R07.9 - Chest pain, unspecified (3) Ventricular ectopy Status: Chronic Assessment & Plan: Frequent, severe, symptomatic, referred to EP but hasn't been able to see yet. Appreciate Cardiology recommendations, started on amiodarone and adjusting other medications. (4) Abdominal aortic aneurysm Status: Chronic Assessment & Plan: s/p recent stenting Qualifiers: Qualified Codes: I71.4 - Abdominal aortic aneurysm, without rupture (5) Coronary artery disease Status: Chronic Assessment & Plan: Aspirin, clopidogrel. Qualifiers: (6) Peripheral vascular disease Status: Chronic (7) Hypertension Status: Chronic Assessment & Plan: Cardiology adjusting medications due to dizziness. Qualifiers: Qualified Codes: I10 - Essential (primary) hypertension (8) DVT prophylaxis Status: Acute Assessment & Plan: Enoxaparin Clinical Quality Measures AMI/AHF: ASA po Prior to arrival: Yes (81 mg) CRISTOPHER ZAZUETA MD Mar 23, 2021 10:34
[2021-03-23] MEDS ORDERED: ENOXAPARIN 40 MG/0.4 ML (LOVENOX) SYR SQ SCH (18:30)
[2021-03-23] MEDS: meTOproloL SUCCINATE 50 MG (TOPROL XL) TAB PO SCH (21:02)
[2021-03-23] MEDS: AMIODARONE 200 MG (CORDARONE) TAB PO SCH (21:03)
[2021-03-24 04:29] LABS: POTASSIUM 3.6 MMOL/L (3.6-5.0)
[2021-03-24 04:30] LABS: CALCIUM 8.2 MG/DL (8.5-10.1)
[2021-03-24 04:34] LABS: CREATININE SERUM 1.06 MG/DL (0.60-1.30)
[2021-03-24 04:36] LABS: MAGNESIUM 1.8 MG/DL (1.6-2.4)
[2021-03-24] MEDS: FUROSEMIDE 40 MG/4 ML INJ (LASIX) IV SCH (06:41)
[2021-03-24] MEDS: CATHETER FLUSH 10 ML SYR IV SCH (06:42)
--- NOTE | 2021-03-24 08:30 | Progress Note - Cardiology ---
Cardiology SOAP Progress Note Subjective: Sitting up in bed Wants to go home States she feels much better today SOB has improved No further c/o dizziness - ambulated in the halls yesterday without any difficulty Objective: I&O/Vital Signs 03/23/21 03/24/21 03/24/21 03/24/21 21:00 00:00 01:00 04:00 Pulse 107 106 113 B/P (MAP) 99/78 120/82 Pulse Ox 99 O2 Delivery Room Air Room Air Room Air 03/24/21 03/24/21 03/24/21 07:00 08:00 08:05 Temp 36.9 Pulse 115 108 Resp 16 B/P (MAP) 116/59 Pulse Ox 96 O2 Delivery Room Air Room Air O2 Flow Rate 0.00 03/24/21 00:00 Intake Total 1420 ml Output Total 1500 ml Balance -80 ml Weight (Pounds): 158 Weight (Ounces): 0.0 Weight (Calculated Kilograms): 71.477611 Constitutional: AAO x 3, well-developed, well-nourished Respiratory: No accessory muscle use; other (good, bilateral air entry; a few fine basal crackles) Cardiovascular: irregularly irregular, S1 and S2, systolic murmur (soft FLAKO at card base) Gastrointestional: No tender; soft; No guarding, No rebound; audible bowel sounds Extremities: No clubbing, No cyanosis, No significant edema Neurologic/Psychiatric: oriented x 3, other (moves all her limbs equally) Skin: warm/dry; No cyanosis, No diaphoresis, No rash on exposed areas, No ulcerations on exposed areas Results/Procedures: Labs Laboratory Tests 03/24/21 04:10: Sodium Level 139, Potassium Level 3.6, Chloride Level 104, Carbon Dioxide Level 21, Anion Gap 14, Blood Urea Nitrogen 26H, Creatinine 1.06, Estimat Glomerular Filtration Rate 59, BUN/Creatinine Ratio 25, Glucose Level 99, Calcium Level 8.2L, Magnesium Level 1.8, Thyroid Stimulating Hormone (TSH) 1.19 A/P: Assessment: Non-specific chest discomfort of undetermined etiology, no evidence of ACS Postural dizziness, likely postural hypotension due to meds Decompensated, acute on chronic, HFrEF Ventricular arrhythmia - Frequent PVC's seen on EKG of Mar 2019. Sep 2019 - Holter study of Oct 2019 showed NSR; frequent PVC's (PVC burden 14.3%); one 43 beat run of NSVT at approx 150 bpm; no significant bradycardia - ECG of 01/05/21: NSR and frequent PVCs, including a triplet - referred to EP at [facility], but she has not followed up yet Tobaccoism - Chronic smoker of cigarettes (currently about 6 cigs per day) - cessation advised Suspected sleep apnea - has not had sleep studies done PAD and h/o AAA - Seg pressures of 12/24/18 show mod bilat PAD (non-critical) - s/p AAA endograft by Dr Farmer on 02-16-21 at [facility] Chronic, bilat leg swelling: - Leg venous Doppler of 12/24/18 did not show any DVT Coronary artery disease: - h/o coronary artery bypass surgery, consisting of saphenous vein to OM, saphenous ein to the posterior descending, radial arteries to the diagonal and left anterior internal mammary artery to LAD in June [address] Angelo at [facility] in [place], [place]. - Cardiac cath on 12/29/19: mod sev mid-vessel stenosis of LAD, mod mid-LCX stenosis, mod stenosis of distal SATISH, mid-vessel occlusion of RCA; occluded aortocoronary grafts known to be to RCA, OM, diag; patent MCCLELLAND graft to LAD; ant lat and apical hypkinesis; posterbasal and diaphragmatic akinesis; LVEF 20%; nomal LVEDP - Stents x 2 to the LCX-OM system by Dr Farmer in Feb 2021 ICM - Echocardiogram of Oct 12, 2019 shows dilated ischemic cardiomyopathy with LVEF approx 25-30%; LA is mod to severely dilated; mod to severe MR; mod TR; PASP 35- 40mmHg - S/P single chamber defib implanted on 08-24-14, functioning normally per interrogation of 01-25-2021 HLP - statin therapy HTN, by history Chronic anxiety - currently controlled Ortho - Cervical stenosis which is followed by Dr. Jasso Carotid dz - Carotid u/s of 01/07/19 showed mild bilat carotid arterial disease, without evidence of hemodynamic significance Probable GERD - improved with empiric treatment with PPIs CKD stage 3 Plan: * Continue current diuretic regimen * Continue DAPT * Freq PVC's - continue Amiodarone * Continued Reduced dose of beta-yuniel d/t low normal BP (persistent dizziness) * Out pt f/u Clinical Quality Measures AMI/AHF: ASA po Prior to arrival: Yes (81 mg) JULES DIAZ Mar 24, 2021 08:30
[2021-03-24] MEDS ORDERED: FURO-124 PO (08:34)
[2021-03-24] MEDS ORDERED: METO50TA7 PO (08:34)
[2021-03-24] MEDS ORDERED: POTA-51 PO (08:34)
[2021-03-24] MEDS ORDERED: AMIO200T65 PO (08:34)
[2021-03-24] MEDS: ASPIRIN 81 MG CHEW (CHILDREN'S ASA) PO SCH (08:53)
[2021-03-24] MEDS: meTOproloL SUCCINATE 50 MG (TOPROL XL) TAB PO SCH (08:53)
[2021-03-24] MEDS: CLOPIDOGREL 75 MG (PLAVIX) TABLET PO SCH (08:54)
[2021-03-24] MEDS: AMIODARONE 200 MG (CORDARONE) TAB PO SCH (08:54)
[2021-03-24] MEDS ORDERED: PANTOPRAZOLE 40 MG (PROTONIX) TAB PO SCH (09:00)
[2021-03-24] MEDS ORDERED: CLOPIDOGREL 75 MG (PLAVIX) TABLET PO SCH (09:00)
--- NOTE | 2021-03-24 12:04 | Discharge Summary ---
Discharge Summary Hospital Course Problems/Diagnosis: (1) Acute exacerbation of CHF (congestive heart failure) Status: Acute Assessment & Plan: Appreciate Cardiology recommendations, receiving lasix, decreased beta yuniel due to dizziness. Qualifiers: Qualified Codes: I50.23 - Acute on chronic systolic (congestive) heart failure (2) Chest pain Status: Acute Assessment & Plan: Troponins negative Qualifiers: Qualified Codes: R07.9 - Chest pain, unspecified (3) Ventricular ectopy Status: Chronic Assessment & Plan: Frequent, severe, symptomatic, referred to EP but hasn't been able to see yet. Appreciate Cardiology recommendations, started on amiodarone and adjusting other medications, see discharge medications. (4) Abdominal aortic aneurysm Status: Chronic Assessment & Plan: s/p recent stenting Qualifiers: Qualified Codes: I71.4 - Abdominal aortic aneurysm, without rupture (5) Coronary artery disease Status: Chronic Assessment & Plan: Aspirin, clopidogrel. Qualifiers: (6) Peripheral vascular disease Status: Chronic (7) Hypertension Status: Chronic Assessment & Plan: Cardiology adjusted medications due to dizziness. Qualifiers: Qualified Codes: I10 - Essential (primary) hypertension Hospital Course Date of Admission: Mar 22, 2021 at 15:12 Admission Diagnosis : Family Physician/Provider: [place] Date of Discharge: 03/24/21 Discharge Diagnosis: See problem list Hospital Course: See problem list Labs and Pending Lab Test: Laboratory Tests 03/24/21 04:10: Sodium Level 139, Potassium Level 3.6, Chloride Level 104, Carbon Dioxide Level 21, Anion Gap 14, Blood Urea Nitrogen 26H, Creatinine 1.06, Estimat Glomerular Filtration Rate 59, BUN/Creatinine Ratio 25, Glucose Level 99, Calcium Level 8.2L, Magnesium Level 1.8, Thyroid Stimulating Hormone (TSH) 1.19 Home Meds Active Potassium Chloride 20 Meq Tablet.er 20 Meq PO DAILY Lasix (Furosemide) 40 Mg Tablet 40 Mg PO DAILY Metoprolol Succinate 50 Mg Tab.er.24h 50 Mg PO BID Amiodarone HCl 200 Mg Tablet 400 Mg PO BID Reported Plavix (Clopidogrel Bisulfate) 75 Mg Tablet 75 Mg PO DAILY Pantoprazole Sodium 40 Mg Tablet.dr 40 Mg PO DAILY Aspirin EC (Aspirin) 81 Mg Tablet.dr 81 Mg PO DAILY Atorvastatin Calcium 40 Mg Tablet 40 Mg PO HS Assessment/Pt DC Instructions Follow up with primary within a week. Reschedule EP appointment jeannie. Follow up with Cardiology as directed. Discharge Diet: Cardiac Diet Activity as Tolerated: Yes Discharge Physical Examination Allergies: Coded Allergies: Penicillins (Verified Allergy, Intermediate, RASH, 11/03/14) General Appearance: No Apparent Distress, WD/WN Respiratory: Lungs Clear, Normal Breath Sounds Cardiovascular: Regular Rate, Rhythm, No Murmur Gastrointestinal: Normal Bowel Sounds, Soft Skin: Normal Color, Warm/Dry Neurologic/Psychiatric: Alert, Normal Mood/Affect Clinical Quality Measures AMI/AHF: ASA po Prior to arrival: Yes (81 mg) CRISTOPHER MARIANO MD Mar 24, 2021 12:04
--- NOTE | 2021-03-24 12:44 | Progress Note - Cardiology ---
Cardiology SOAP Progress Note Subjective: Dizziness and weakness are much improved No cp or palp or syncope No n/v/d No focal weakness No shortness of breath with mild to mod exertion Objective: I&O/Vital Signs 03/24/21 03/24/21 03/24/21 03/24/21 01:00 04:00 07:00 08:00 Pulse 106 113 115 B/P (MAP) 120/82 O2 Delivery Room Air Room Air O2 Flow Rate 0.00 03/24/21 03/24/21 08:05 09:00 Temp 36.9 Pulse 108 Resp 16 B/P (MAP) 116/59 Pulse Ox 96 99 O2 Delivery Room Air Room Air 03/24/21 00:00 Intake Total 1420 ml Output Total 1500 ml Balance -80 ml Weight (Pounds): 158 Weight (Ounces): 0.0 Weight (Calculated Kilograms): 71.595865 Constitutional: AAO x 3, well-developed, well-nourished Respiratory: No accessory muscle use; other (good, bilateral air entry; a few f ine basal crackles) Cardiovascular: irregularly irregular, S1 and S2, systolic murmur (soft FLAKO at card base) Gastrointestional: No tender; soft; No guarding, No rebound; audible bowel sounds Extremities: No clubbing, No cyanosis, No significant edema Neurologic/Psychiatric: oriented x 3, other (moves all her limbs equally) Skin: warm/dry; No cyanosis, No diaphoresis, No rash on exposed areas, No ulcerations on exposed areas Results/Procedures: Labs Laboratory Tests 03/24/21 04:10: Sodium Level 139, Potassium Level 3.6, Chloride Level 104, Carbon Dioxide Level 21, Anion Gap 14, Blood Urea Nitrogen 26H, Creatinine 1.06, Estimat Glomerular Filtration Rate 59, BUN/Creatinine Ratio 25, Glucose Level 99, Calcium Level 8.2 L, Magnesium Level 1.8, Thyroid Stimulating Hormone (TSH) 1.19 Laboratory Tests 03/22/21 13:49 03/23/21 04:45 03/24/21 04:10 A/P: Assessment: Non-specific chest discomfort of undetermined etiology, no evidence of ACS Postural dizziness, likely postural hypotension due to meds Decompensated, acute on chronic, HFrEF Ventricular arrhythmia - Frequent PVC's seen on EKG of Mar 2019. Sep 2019 - Holter study of Oct 2019 showed NSR; frequent PVC's (PVC burden 14.3%); one 43 beat run of NSVT at approx 150 bpm; no significant bradycardia - ECG of 01/05/21: NSR and frequent PVCs, including a triplet - referred to EP at [facility], but she has not followed up yet Tobaccoism - Chronic smoker of cigarettes (currently about 6 cigs per day) - cessation advised Suspected sleep apnea - has not had sleep studies done PAD and h/o AAA - Seg pressures of 12/24/18 show mod bilat PAD (non-critical) - s/p AAA endograft by Dr Farmer on 02-16-21 at [facility] Chronic, bilat leg swelling: - Leg venous Doppler of 12/24/18 did not show any DVT Coronary artery disease: - h/o coronary artery bypass surgery, consisting of saphenous vein to OM, saphe nous ein to the posterior descending, radial arteries to the diagonal and left anterior internal mammary artery to LAD in [address] Angelo at [facility] in [place], [place]. - Cardiac cath on 12/29/19: mod sev mid-vessel stenosis of LAD, mod mid-LCX stenosis, mod stenosis of distal SATISH, mid-vessel occlusion of RCA; occluded aortocoronary grafts known to be to RCA, OM, diag; patent MCCLELLAND graft to LAD; ant lat and apical hypkinesis; posterbasal and diaphragmatic akinesis; LVEF 20%; nomal LVEDP - Stents x 2 to the LCX-OM system by Dr Farmer in Feb 2021 ICM - Echocardiogram of Oct 12, 2019 shows dilated ischemic cardiomyopathy with LVEF approx 25-30%; LA is mod to severely dilated; mod to severe MR; mod TR; PASP 35- 40mmHg - S/P single chamber defib implanted on 08-24-14, functioning normally per interrogation of 01-25-2021 HLP - statin therapy HTN, by history Chronic anxiety - currently controlled Ortho - Cervical stenosis which is followed by Dr. Jasso Carotid dz - Carotid u/s of 01/07/19 showed mild bilat carotid arterial disease, without evidence of hemodynamic significance Probable GERD - improved with empiric treatment with PPIs CKD stage 3 Plan: * Continue current diuretic regimen * Continue DAPT * Freq PVC's - continue Amiodarone * Continued Reduced dose of beta-yuniel d/t low normal BP (persistent dizziness) * Out pt f/u Clinical Quality Measures AMI/AHF: ASA po Prior to arrival: Yes (81 mg) SHARMILA RAYMUNDO MD FACP FAC CCDS Mar 24, 2021 12:44
== END 2021-03-24 12:04 | disposition home or self-care (01) ==
LOC: EDUNIT# 13:35 → ER 13:37 → UNDOADMOB 15:12 → CSD 15:12 → UNDODISOB 03-24 13:24
PROVIDERS: ADMIT Family Medicine; ATTEND Family Medicine
DX: R07.89 Other chest pain (principal); I13.0 Hypertensive heart and chronic kidney disease with heart failure and stage 1 through stage 4 chronic kidney disease, or unspecified chronic kidney disease; I50.23 Acute on chronic systolic (congestive) heart failure; I71.4 Abdominal aortic aneurysm, without rupture; I25.10 Atherosclerotic heart disease of native coronary artery without angina pectoris; I73.9 Peripheral vascular disease, unspecified; F17.210 Nicotine dependence, cigarettes, uncomplicated; E78.5 Hyperlipidemia, unspecified; F41.8 Other specified anxiety disorders; M48.02 Spinal stenosis, cervical region; N18.30 Chronic kidney disease, stage 3 unspecified; I08.3 Combined rheumatic disorders of mitral, aortic and tricuspid valves; I48.91 Unspecified atrial fibrillation; I49.3 Ventricular premature depolarization; I45.89 Other specified conduction disorders; I49.8 Other specified cardiac arrhythmias; E78.00 Pure hypercholesterolemia, unspecified; M19.90 Unspecified osteoarthritis, unspecified site; F32.A Depression, unspecified; Z79.899 Other long term (current) drug therapy; Z79.02 Long term (current) use of antithrombotics/antiplatelets; Z79.82 Long term (current) use of aspirin; Z86.16 Personal history of COVID-19; Z79.891 Long term (current) use of opiate analgesic; Z95.1 Presence of aortocoronary bypass graft
CPT/HCPCS: 36415; 71045; 80048; 80053; 83735; 83880; 84443; 84484; 85025; 85610; 85730; 93005; 93306

== ENCOUNTER → 2021-07-19 | Outpatient (CLI) | payer MEDICARE ==
[~2021-07-19] MED LIST changes: +AMIO200T65 PO; +AMLO2.5T4 PO; +ASPI-1238 PO; +CATHETER FLUSH 10 ML SYR IV PRN; +CLOP75TA69 PO; +FURO-124 PO; +FURO40TA4 PO; +HOLD METFORMIN - RECEIVED CONTRAST 20 ML VIAL IV SCH; +IOHEXOL 350 MG/ML 100 ML (OMNIPAQUE 350) VIAL IV ONE; +METO200T48 PO; +METO50TA7 PO; +NS 100 ML (IVPB) BAG IV ONE; +PANT40TA52 PO; +POTA-51 PO; +POTA10CA43 PO
[2021-07-19 09:13] LABS: CREATININE SERUM 1.17 MG/DL (0.60-1.30)
--- NOTE | 2021-07-19 10:02 | Diagnostic Imaging Report ---
INDICATION: Abdominal aortic aneurysm. TECHNIQUE: Multiple contiguous axial images were obtained through the abdomen and pelvis after administration of intravenous contrast. 3D MIP reconstructions were made. Auto Exposure Controls were utilized during the CT exam to meet ALARA standards for radiation dose reduction. Comparison made with 12/27/2020. The visualized portions of the lung bases are clear. There were no pleural fluid collections. There is no free intraperitoneal air. There is cardiomegaly. The liver shows no focal lesion. There is a diffuse imaging appearance of the liver on the delayed images which may represent passive congestion. Gallbladder is absent. The spleen, adrenals, and pancreas are normal. Kidneys bilaterally show no solid mass or hydronephrosis. There is a large cyst in the left kidney, appearance is unchanged compared to the prior study. There is no retroperitoneal mass or hematoma. There is no abscess. Visualized bowel loops show no sign of obstruction. There is a minimal trace of free fluid in the pelvis. CTA images demonstrate abdominal aortic stent graft device in place from the infrarenal abdominal aorta to the common iliac arteries on both sides. There is flow in both limbs of the stent graft. There is no evidence of endoleak. Maximal aortic aneurysm sac diameter was 4.5 x 3.8 cm. This compares to measurements of 5.4 x 4.9 cm previously. The renal arteries and celiac trunk and SMA are patent. IMPRESSION: Abdominal aortic aneurysm with new stent graft device in place compared to the prior study. There is flow in both limbs of the stent graft with no evidence of endoleak. Aortic aneurysm sac diameter has decreased in size compared to the previous study. There is cardiomegaly. There is a diffuse homogenous appearance of the liver which may represent passive congestion. Dictated by: Dictated on workstation # [id number]
== END ==
LOC: RAD 09:45
PROVIDERS: ATTEND Internal Medicine Cardiovascular Disease
DX: I71.4 Abdominal aortic aneurysm, without rupture (principal); I51.7 Cardiomegaly; Z95.828 Presence of other vascular implants and grafts
CPT/HCPCS: 36415; 74175; 82565; 84520

== ENCOUNTER 2021-10-02 14:29 | Observation (INO) | payer MEDICARE ==
[~2021-10-02] VITALS: Ht 165 cm; Wt 78.0 kg
[~2021-10-02 14:29] MED LIST changes: -CATHETER FLUSH 10 ML SYR IV PRN; -HOLD METFORMIN - RECEIVED CONTRAST 20 ML VIAL IV SCH; -IOHEXOL 350 MG/ML 100 ML (OMNIPAQUE 350) VIAL IV ONE; -NS 100 ML (IVPB) BAG IV ONE
[2021-10-02 15:24] LABS: BASOPHILS % (AUTO) 1 % (0-10); EOSINOPHILS # (AUTO) 0.1 10^3/uL (0.0-0.3); EOSINOPHILS % (AUTO) 2 % (0-10); HEMATOCRIT 29 % (35-52); LYMPHOCYTES # (AUTO) 1.1 X 10^3 (1.0-4.0); LYMPHOCYTES % (AUTO) 20 % (12-44); MEAN CORPUSCULAR HEMOGLOBIN 21 pg (25-34); MEAN CORPUSCULAR HGB CONC 28 g/dL (32-36); MEAN CORPUSCULAR VOLUME 75 fL (80-99); MEAN PLATELET VOLUME 9.5 fL (9.0-12.2); MONOCYTES # (AUTO) 0.4 X 10^3 (0.0-1.0); MONOCYTES % (AUTO) 8 % (0-12); NEUTROPHILS # (AUTO) 3.9 X 10^3 (1.8-7.8); NEUTROPHILS % (AUTO) 70 % (42-75); PLATELET COUNT 335 10^3/uL (130-400); WHITE BLOOD COUNT 5.6 10^3/uL (4.3-11.0)
[2021-10-02 15:37] LABS: ALBUMIN 2.9 GM/DL (3.2-4.5); CHLORIDE 105 MMOL/L (98-107); POTASSIUM 3.7 MMOL/L (3.6-5.0); SODIUM 144 MMOL/L (135-145)
[2021-10-02 15:38] LABS: CALCIUM 8.3 MG/DL (8.5-10.1)
[2021-10-02 15:39] LABS: GLUCOSE 138 MG/DL (70-105); TOTAL PROTEIN 6.3 GM/DL (6.4-8.2)
[2021-10-02 15:40] LABS: CARBON DIOXIDE 25 MMOL/L (21-32)
[2021-10-02 15:43] LABS: ALKALINE PHOSPHATASE 151 U/L (40-136); CREATININE SERUM 1.51 MG/DL (0.60-1.30); GFR ESTIMATED 39
[2021-10-02 15:44] LABS: BUN/CREATININE RATIO 16
[2021-10-02 15:46] LABS: ALANINE AMINOTRANSFERASE 14 U/L (0-55)
--- NOTE | 2021-10-02 15:47 | ED General ---
General Chief Complaint: Cardiac/General Problems Stated Complaint: BILAT SWELLING IN LEGS AND ARMS - SOA Nursing Triage Note: pt ambulatory to room. pt states she has heart failure and has had increasing generalized edema. pt states she sees Dr. Dangelo, he is out of office, and his nurse recommended she come here to get checked out. pt reports taking an extra dose of her lasix at home for a couple of days and states she has only gotten more edema. pt reports she typically always has sob on exertion, but it has also worsened recently with the increased swelling. pt denies chest pain Source of Information: Patient Exam Limitations: No Limitations History of Present Illness Date Seen by Provider: Oct 02, 2021 Time Seen by Provider: 15:32 Initial Comments Patient is a very pleasant 61-year-old female patient of Dr. Dangelo extensive cardiac history who presents with a chief complaint of concern for significant swelling from her feet up into her abdomen. She sees a dopster/machinist mechanic at as well as Dr. Dangelo and Dr. Farmer/Dr. Saldana at [place]. She has had coronary artery bypass surgery, multiple stents, abdominal aortic aneurysm repair. Patient states that one of her dopster decreased her 80 mg Lasix back to 40 mg about 3 months ago. She states since that time she feels like she has slowly over time gained a significant amount of weight and fluid alone. She reports that she was 240 pounds in April or May of this year and is up over 260 now. She does endorse a little shortness of breath with exertion. She does not require the use of supplemental oxygen. She adamantly denies chest pain, pressure or tightness etc. No urinary complaints other than urgency. No black or bloody stools. No fevers or chills or COVID concerns. She is not COVID vaccinated. She has been alternating over the last 3 to 4 days 40 and 80 mg of Lasix daily. She states it has not made much improvement. All other review of systems reviewed and negative except as stated. Timing/Duration: 5-6 Days Severity: Moderate Associated Systoms: Shortness of Air (with exertion) Allergies and Home Medications Allergies Coded Allergies: Penicillins (Verified Allergy, Intermediate, RASH, 11/03/14) Patient Home Medication List Home Medication List Reviewed: Yes Amiodarone HCl (Amiodarone HCl) 200 Mg Tablet, 400 MG PO BID Prescribed by: JULES DIAZ on 03/24/21833 Aspirin (Aspirin EC) 81 Mg Tablet., 81 MG PO DAILY, (Reported) Entered as Reported by: SILVESTRE GALVAN on 03/23/21 0950 Atorvastatin Calcium (Atorvastatin Calcium) 40 Mg Tablet, 40 MG PO HS, (Reported) Entered as Reported by: CHIKIS WHITFIELD on 11/03/14 1340 Clopidogrel Bisulfate (Plavix) 75 Mg Tablet, 75 MG PO DAILY, (Reported) Entered as Reported by: SILVESTRE GALVAN on 03/23/21 0951 Furosemide (Lasix) 40 Mg Tablet, 40 MG PO DAILY Prescribed by: JULES DIAZ on 03/24/21833 Metoprolol Succinate (Metoprolol Succinate) 50 Mg Tab.er.24h, 50 MG PO BID Prescribed by: JULES DIAZ on 03/24/21833 Pantoprazole Sodium (Pantoprazole Sodium) 40 Mg Tablet.dr, 40 MG PO DAILY, (Reported) Entered as Reported by: SILVESTRE GALVAN on 03/23/21 09 Potassium Chloride (Potassium Chloride) 20 Meq Tablet.er, 20 MEQ PO DAILY Prescribed by: JULES DIAZ on 03/24/21833 Review of Systems Review of Systems Constitutional: see HPI EENTM: no symptoms reported Respiratory: dyspnea on exertion Cardiovascular: no symptoms reported, other (swelling) Gastrointestinal: no symptoms reported Genitourinary: frequency : No Musculoskeletal: joint swelling Skin: no symptoms reported Psychiatric/Neurological: No Symptoms Reported All Other Systems Reviewed Negative Unless Noted: Yes Past Zqdvutq-Sytrta-Ujqwlk Hx Immunizations Up To Date Tetanus Booster (TDap): Unknown Seasonal Allergies Seasonal Allergies: No Past Medical History Surgery/Hospitalization HX: CARDIAC HX Surgeries: Yes (CORONARY STENT, LAP JOHNATHON, TOTAL HYSTERECTOMY) Breast, Cardiac, CABG, Section, Coronary Stent, Gallbladder, Hysterectomy, Oophorectomy, Orthopedic Respiratory: Yes Pneumonia Currently Using CPAP: No Currently Using BIPAP: No Cardiac: Yes (CABG (2011), X2 [place], STENTS, DEFIBRILLATOR, CARDIOMEGALY ) Cardiomyopathy, Coronary Artery Disease, Deep Vein Thrombosis, Heart Attack, High Cholesterol, Hypertension, Irregular Heartbeat, Syncope Neurological: No Reproductive Disorders: Yes (CERVICAL DYSPLASIA ) 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 Genitourinary: Yes (History pyelonephritis) Kidney Infection, Renal Failure, UTI-Chronic Gastrointestinal: Yes (abdominal aneurysm) Gastroesophageal Reflux, Diverticulosis, Hiatal Hernia Musculoskeletal: Yes ( CERVICAL STENOSIS, SEVERE CHRONIC BRUSITIS RT SHOULDER) Arthritis, Chronic Back Pain Endocrine: No Cancer: No (CERVICAL CLASS I DYSPLASIA ) Cervical Psychosocial: Yes Anxiety, Depression Integumentary: No Blood Disorders: Yes (DVT RT BRACHIAL ) Adverse Reaction/Blood Tranf: No Family Medical History Cardiovascular disease G8 SISTER DVT 19 MOTHER FH: bladder cancer 19 FATHER, FH: colon cancer 19 FATHER, FH: liver cancer G8 BROTHER, HEMORRHAGIC STROKE 19 MOTHER Physical Exam Vital Signs Vital Signs - First Documented 10/02/21 15:00 Temp 36.8 Pulse 50 Resp 15 B/P (MAP) 133/64 (87) Pulse Ox 98 Capillary Refill : Height, Weight, BMI Height: 5'5.00" Weight: 158lbs. 0.0oz. 71.570272sq; 28.00 BMI Method:Stated General Appearance: No Apparent Distress, WD/WN Eyes: Bilateral Eye Normal Inspection, Bilateral Eye PERRL, Bilateral Eye EOMI HEENT: PERRL/EOMI, Normal ENT Inspection Neck: Full Range of Motion, JVD Respiratory: No Accessory Muscle Use, No Respiratory Distress, Rales Cardiovascular: Regular Rate, Rhythm (50's), Normal Peripheral Pulses Gastrointestinal: Non Tender, Soft Extremity: Normal Range of Motion, Pedal Edema (2-3+ bilaterally up to lower abdomen) Neurologic/Psychiatric: Alert, Oriented x3, No Motor/Sensory Deficits, Normal Mood/Affect, medical technologist prn II-XII Norm as Tested Skin: Normal Color, Warm/Dry Progress/Results/Core Measures Suspected Sepsis SIRS Temperature: Pulse: 50 Respiratory Rate: 15 Laboratory Tests 10/02/21 15:13: White Blood Count 5.6 Blood Pressure 133 /64 Mean: 87 Laboratory Tests 10/02/21 15:13: Creatinine 1.51H, Platelet Count 335, Total Bilirubin 1.0 Results/Orders Lab Results Laboratory Tests Test 10/02/21 15:13 10/02/21 15:16 Range/Units White Blood Count 5.6 4.3-11.0 10^3/uL Red Blood Count 3.84 3.80-5.11 10^6/uL Hemoglobin 8.0 L 11.5-16.0 g/dL Hematocrit 29 L 35-52 % Mean Corpuscular Volume 75 L 80-99 fL Mean Corpuscular Hemoglobin 21 L 25-34 pg Mean Corpuscular Hemoglobin Concent 28 L 32-36 g/dL Red Cell Distribution Width 21.1 H 10.0-14.5 % Platelet Count 335 130-400 10^3/uL Mean Platelet Volume 9.5 9.0-12.2 fL Immature Granulocyte % (Auto) 0 % Neutrophils (%) (Auto) 70 42-75 % Lymphocytes (%) (Auto) 20 12-44 % Monocytes (%) (Auto) 8 0-12 % Eosinophils (%) (Auto) 2 0-10 % Basophils (%) (Auto) 1 0-10 % Neutrophils # (Auto) 3.9 1.8-7.8 X 10^3 Lymphocytes # (Auto) 1.1 1.0-4.0 X 10^3 Monocytes # (Auto) 0.4 0.0-1.0 X 10^3 Eosinophils # (Auto) 0.1 0.0-0.3 10^3/uL Basophils # (Auto) 0.0 0.0-0.1 10^3/uL Immature Granulocyte # (Auto) 0.0 0.0-0.1 10^3/uL D-Dimer 0.88 H 0.00-0.49 UG/ML Sodium Level 144 135-145 MMOL/L Potassium Level 3.7 3.6-5.0 MMOL/L Chloride Level 105 98-107 MMOL/L Carbon Dioxide Level 25 21-32 MMOL/L Anion Gap 14 5-14 MMOL/L Blood Urea Nitrogen 24 H 7-18 MG/DL Creatinine 1.51 H 0.60-1.30 MG/DL Estimat Glomerular Filtration Rate 39 BUN/Creatinine Ratio 16 Glucose Level 138 H 70-105 MG/DL Calcium Level 8.3 L 8.5-10.1 MG/DL Corrected Calcium 9.2 8.5-10.1 MG/DL Magnesium Level 2.0 1.6-2.4 MG/DL Total Bilirubin 1.0 0.1-1.0 MG/DL Aspartate Amino Transf (AST/SGOT) 17 5-34 U/L Alanine Aminotransferase (ALT/SGPT) 14 0-55 U/L Alkaline Phosphatase 151 H 40-136 U/L Troponin I < 0.028 <0.028 NG/ML B-Type Natriuretic Peptide 4288.8 H <100.0 PG/ML Total Protein 6.3 L 6.4-8.2 GM/DL Albumin 2.9 L 3.2-4.5 GM/DL Thyroid Stimulating Hormone (TSH) 1.57 0.35-4.94 UIU/ML Free Thyroxine 1.19 0.70-1.48 NG/DL Influenza Type A (RT-PCR) Not Detected Not Detecte Influenza Type B (RT-PCR) Not Detected Not Detecte SARS-CoV-2 RNA (RT-PCR) Not Detected Not Detecte My Orders Orders - GHISLAINE DAVIS MD Furosemide Injection (Lasix Injection) (10/02/21 17:15) Medications Given in ED Current Medications Medications Dose Ordered Sig/Travis Route Start Time Stop Time Status Last Admin Dose Admin Furosemide 40 mg ONCE ONCE IVP 10/02/21 17:15 10/02/21 17:16 DC 10/02/21 17:20 40 MG Vital Signs/I&O 10/02/21 15:00 Temp 36.8 Pulse 50 Resp 15 B/P (MAP) 133/64 (87) Pulse Ox 98 Capillary Refill : Blood Pressure Mean: 87 Departure Communication (Admissions) Time/Spoke to Admitting Phy: 17:[address] Zazueta Time/Spoke to Consulting Phy: 17:[address] Bejarano - 80mg now and 40mg BID Impression Primary Impression: Acute exacerbation of CHF (congestive heart failure) Disposition: 01 HOME, SELF-CARE Condition: Stable Admissions Decision to Admit Reason: Admit from ER (General) Decision to Admit/Date: Oct 02, 2021 Time/Decision to Admit Time: 17:32 Departure-Patient Inst. Referrals: [facility] (PCP/Family) Primary Care Physician GHISLAINE DAVIS MD Oct 02, 2021 15:47
[2021-10-02 16:08] LABS: FREE T4 (FREE THYROXINE) 1.19 NG/DL (0.70-1.48)
--- NOTE | 2021-10-02 16:31 | Diagnostic Imaging Report ---
INDICATION: Shortness of air. EXAMINATION: Portable chest at 3:50 PM. FINDINGS: There are postop changes from CABG surgery. There is a single chamber pacemaker. The heart size and pulmonary vascularity are increased. The lungs are clear. There are no effusions or pneumothoraces. IMPRESSION: Cardiomegaly with mild pulmonary venous hypertension. Dictated by: Dictated on workstation # [id number]
[2021-10-02] MEDS ORDERED: FUROSEMIDE 40 MG/4 ML INJ (LASIX) IVP ONE ×2 (17:15→17:30)
[2021-10-02] MEDS ORDERED: AMIO200T65 PO (18:53)
[2021-10-02] MEDS ORDERED: SACU1TAB2 PO (18:53)
[2021-10-02] MEDS ORDERED: CATHETER FLUSH 10 ML SYR IVP PRN (19:00)
[2021-10-02 19:03] VITALS: BP 133/64
[2021-10-02] MEDS ORDERED: RT-ALBUTEROL SULF 2.5 MG/3 ML PRE-MIX VIAL INH PRN (19:15)
[2021-10-02 19:48] VITALS: BP 150/70
[2021-10-02] MEDS: SACUBITRIL/VALSARTAN 24/26 MG (ENTRESTO) TABLET PO SCH (21:43)
[2021-10-02] MEDS: CATHETER FLUSH 10 ML SYR IVP SCH (21:43)
[2021-10-02] MEDS: meTOproloL SUCCINATE 50 MG (TOPROL XL) TAB PO SCH (21:43)
[2021-10-02 23:29] VITALS: BP 143/70
[2021-10-03 03:17] VITALS: BP 131/61
[2021-10-03] MEDS: FUROSEMIDE 40 MG/4 ML INJ (LASIX) IV SCH ×2 (05:04→16:24)
[2021-10-03] MEDS: CATHETER FLUSH 10 ML SYR IVP SCH ×3 (05:04→19:44)
[2021-10-03 06:19] LABS: POTASSIUM 3.4 MMOL/L (3.6-5.0)
[2021-10-03 06:20] LABS: CALCIUM 8.4 MG/DL (8.5-10.1)
[2021-10-03 06:25] LABS: CREATININE SERUM 1.35 MG/DL (0.60-1.30)
[2021-10-03] MEDS: CLOPIDOGREL 75 MG (PLAVIX) TABLET PO SCH (07:57)
[2021-10-03] MEDS: ASPIRIN E.C. 81 MG (ECOTRIN) TAB PO SCH (07:57)
[2021-10-03] MEDS: PANTOPRAZOLE 40 MG (PROTONIX) TAB PO SCH (07:57)
[2021-10-03] MEDS: meTOproloL SUCCINATE 50 MG (TOPROL XL) TAB PO SCH (07:57)
[2021-10-03] MEDS: SACUBITRIL/VALSARTAN 24/26 MG (ENTRESTO) TABLET PO SCH ×2 (07:57→19:43)
[2021-10-03] MEDS: AMIODARONE 200 MG (CORDARONE) TAB PO SCH (07:57)
--- NOTE | 2021-10-03 07:58 | Consultation-Cardiology ---
HPI-Cardiology Cardiology Consultation Date of Consultation 10/03/21 Date of Admission Time Seen by Provider: 07:50 Indication: Congestive heart failure HPI 61-year-old lady with history of congestive heart failure, tobaccoism, hypertension. Has been having increasing pedal edema, reported that her diuretics dose was decreased by half about 3 months ago and she has been noticing increase in her pedal edema. She try to increase the dose for the past couple of days without significant response. On arrival to the emergency room she had significant weight gain and peripheral edema, she was given 80 mg of Lasix and started on 40 mg IV twice a day. Reporting significant improvement in her edema. Still have mild pedal edema. No chest pain was reported Home Medications & Allergies Allergies: Coded Allergies: Penicillins (Verified Allergy, Intermediate, RASH, 11/03/14) Home Medication List Reviewed: Yes YSG-Hhetgj-Hbolzc Hx Patient Social History Marital Status: Employed/Student: retired Smoking Status: Current Someday Smoker Type Used: Cigarettes Recent Hopitalizations: No Have you traveled recently?: No Alcohol Use?: No Immunizations Up To Date Tetanus Booster (TDap): Unknown Date of Pneumonia Vaccine: Aug 24, 2010 Date of Influenza Vaccine: Apr 20, 2014 Past Medical History Discussed below Family Medical History Family History: Cardiovascular disease G8 SISTER DVT 19 MOTHER FH: bladder cancer 19 FATHER, FH: colon cancer 19 FATHER, FH: liver cancer G8 BROTHER, HEMORRHAGIC STROKE 19 MOTHER Review of Systems-General Review of Systems Constitutional: see HPI, malaise EENTM: see HPI, no symptoms reported Respiratory: see HPI, dyspnea on exertion, orthopnea Cardiovascular: see HPI; No chest pain; edema; No Hx of Intervention, No palpitations, No syncope, No vascular heart diseas; other (swelling) Gastrointestinal: no symptoms reported, see HPI Genitourinary: see HPI, frequency : No Musculoskeletal: see HPI, joint swelling Skin: no symptoms reported, see HPI Psychiatric/Neurological: No Symptoms Reported, See HPI All Other Systems Reviewed Negative Unless Noted: Yes Reviewed Test Results Reviewed Test Results Lab Laboratory Tests Test 10/02/21 15:13 10/02/21 15:16 10/03/21 05:36 Range/Units White Blood Count 5.6 4.3-11.0 10^3/uL Red Blood Count 3.84 3.80-5.11 10^6/uL Hemoglobin 8.0 L 11.5-16.0 g/dL Hematocrit 29 L 35-52 % Mean Corpuscular Volume 75 L 80-99 fL Mean Corpuscular Hemoglobin 21 L 25-34 pg Mean Corpuscular Hemoglobin Concent 28 L 32-36 g/dL Red Cell Distribution Width 21.1 H 10.0-14.5 % Platelet Count 335 130-400 10^3/uL Mean Platelet Volume 9.5 9.0-12.2 fL Immature Granulocyte % (Auto) 0 % Neutrophils (%) (Auto) 70 42-75 % Lymphocytes (%) (Auto) 20 12-44 % Monocytes (%) (Auto) 8 0-12 % Eosinophils (%) (Auto) 2 0-10 % Basophils (%) (Auto) 1 0-10 % Neutrophils # (Auto) 3.9 1.8-7.8 X 10^3 Lymphocytes # (Auto) 1.1 1.0-4.0 X 10^3 Monocytes # (Auto) 0.4 0.0-1.0 X 10^3 Eosinophils # (Auto) 0.1 0.0-0.3 10^3/uL Basophils # (Auto) 0.0 0.0-0.1 10^3/uL Immature Granulocyte # (Auto) 0.0 0.0-0.1 10^3/uL D-Dimer 0.88 H 0.00-0.49 UG/ML Sodium Level 144 142 135-145 MMOL/L Potassium Level 3.7 3.4 L 3.6-5.0 MMOL/L Chloride Level 105 102 98-107 MMOL/L Carbon Dioxide Level 25 25 21-32 MMOL/L Anion Gap 14 15 H 5-14 MMOL/L Blood Urea Nitrogen 24 H 23 H 7-18 MG/DL Creatinine 1.51 H 1.35 H 0.60-1.30 MG/DL Estimat Glomerular Filtration Rate 39 44 BUN/Creatinine Ratio 16 17 Glucose Level 138 H 103 70-105 MG/DL Calcium Level 8.3 L 8.4 L 8.5-10.1 MG/DL Corrected Calcium 9.2 8.5-10.1 MG/DL Magnesium Level 2.0 1.6-2.4 MG/DL Total Bilirubin 1.0 0.1-1.0 MG/DL Aspartate Amino Transf (AST/SGOT) 17 5-34 U/L Alanine Aminotransferase (ALT/SGPT) 14 0-55 U/L Alkaline Phosphatase 151 H 40-136 U/L Troponin I < 0.028 <0.028 NG/ML B-Type Natriuretic Peptide 4288.8 H <100.0 PG/ML Total Protein 6.3 L 6.4-8.2 GM/DL Albumin 2.9 L 3.2-4.5 GM/DL Thyroid Stimulating Hormone (TSH) 1.57 0.35-4.94 UIU/ML Free Thyroxine 1.19 0.70-1.48 NG/DL Influenza Type A (RT-PCR) Not Detected Not Detecte Influenza Type B (RT-PCR) Not Detected Not Detecte SARS-CoV-2 RNA (RT-PCR) Not Detected Not Detecte Physical Exam Physical Exam Vital Signs Vital Signs - First Documented 10/02/21 10/02/21 10/02/21 15:00 19:03 19:48 Temp 36.8 Pulse 50 Resp 15 B/P (MAP) 133/64 (87) Pulse Ox 98 O2 Delivery Room Air FiO2 21 Capillary Refill : Height, Weight, BMI Height: 5'5.00" Weight: 158lbs. 0.0oz. 71.057949ob; 28.65 BMI Method:Stated General Appearance: No Apparent Distress, WD/WN Eyes: Bilateral Eye Normal Inspection, Bilateral Eye PERRL, Bilateral Eye EOMI HEENT: PERRL/EOMI, Normal ENT Inspection Neck: Full Range of Motion, JVD Respiratory: No Accessory Muscle Use, No Respiratory Distress, Rales Cardiovascular: Regular Rate, Rhythm (50's), Normal Peripheral Pulses, Systolic Murmur Gastrointestinal: Non Tender, Soft Extremity: Normal Range of Motion, Pedal Edema (2-3+ bilaterally up to lower abdomen) Neurologic/Psychiatric: Alert, Oriented x3, No Motor/Sensory Deficits, Normal Mood/Affect, retail performance specialist II-XII Norm as Tested Skin: Normal Color, Warm/Dry A/P-Cardiology Admission Diagnosis Congestive heart failure Coronary artery disease Chronic kidney disease Peripheral edema Assessment/Plan Congestive heart failure, acute on chronic left ventricular systolic dysfunction, ischemic cardiomyopathy Received Lasix IV and responding well to diuretics. Reporting significant improvement Continue with aggressive diuresis and evaluate tolerance and response. Coronary artery disease, extensive history History of CABG using vein graft to OM, vein graft to the PDA, radial to the diagonal and MCCLELLAND to the LAD in June 2011 at [facility] Cardiac catheterization in December 2019 showing moderate to severe mom mid LAD stenosis, moderate mid circumflex artery with moderate disease at the distal OM, mid vessel occlusion of the right coronary artery, occluded graft to the right coronary artery obtuse marginal and diagonal. Patent MCCLELLAND to the LAD with anterolateral hypokinesis and posterobasal and diaphragmatic akinesis. Ejection fraction 20% February 2021 2 stents to the circumflex and obtuse marginal system by Dr. Farmer History of ventricular arrhythmia. Frequent PVCs, Holter monitor showed 43 beats of nonsustained ventricular tachycardia. Improved on amiodarone in April [address] Rojas in May 2021 History of ICD implant in 2019 single-chamber. No arrhythmia detected as an outpatient. Did not interrogate her ICD on this admission. Peripheral arterial disease, history of abdominal aortic aneurysm Endograft done by Dr. Farmer in January 2021 at [facility] Tobaccoism, still an active smoker History of orthostatic dizziness with postural hypotension. Secondary to aggressive medication Questionable sleep apnea. Chronic pedal edema. Chronic kidney disease stage III. Continue to monitor renal function while on aggressive diuresis Cervical stenosis followed by Dr. Jasso Carotid stenosis, followed by Dr. Dangelo. Chronic anxiety PATRICK COTTRELL MD Oct 03, 2021 07:57
[2021-10-03 08:08] VITALS: BP 152/80
[2021-10-03 08:24] LABS: HEMATOCRIT 28 % (35-52); MEAN CORPUSCULAR HEMOGLOBIN 21 pg (25-34); MEAN CORPUSCULAR HGB CONC 28 g/dL (32-36); MEAN CORPUSCULAR VOLUME 74 fL (80-99); MEAN PLATELET VOLUME 10.7 fL (9.0-12.2); PLATELET COUNT 341 10^3/uL (130-400); WHITE BLOOD COUNT 7.1 10^3/uL (4.3-11.0)
[2021-10-03] MEDS ORDERED: KCL 20 MEQ TAB (K-DUR) PO ONE (08:30)
[2021-10-03 11:26] VITALS: BP 125/59
--- NOTE | 2021-10-03 13:19 | History & Physical ---
HPI History of Present Illness: 61 yo female with worsening edema and mild shortness of breath over about a week. She usually follows with Dr. Dangelo and she called his office and they recommended she come to the hospital to get checked out. Denies chest pain, dizziness. Last week she had a GI issue with diarrhea and abdominal pain, she had jelly like stools and did have some blood with stools that she thought was from internal hemorrhoids because it was not a large amount. She thinks last colonoscopy was around 5 years ago at [facility] and reports it was normal. She does not believe she has had an EGD before. Source: patient Date seen by provider: Oct 03, 2021 Time Seen by Provider: 13:15 Attending Physician [facility] PCP Admitting Physician: Cristopher Zazueta MD Attending Physician: Cristopher Zazueta MD Consult Date of Admission Oct 02, 2021 at 17:29 Home Medications Home Medications Reviewed patient Home Medication Reconciliation performed by pharmacy medication reconciliations diesel maintenance technician and/or nursing. Patients Allergies have been reviewed. Allergies Coded Allergies: Penicillins (Verified Allergy, Intermediate, RASH, 11/03/14) [id number] Hx Patient Social History Marrital Status: Employed/Student: retired Smoking Status: Current Someday Smoker Recent Hopitalizations: No Alcohol Use?: Yes (social) Tobacco type used: Cigarettes Have you traveled recently?: No Immunizations Up To Date Tetanus Booster (TDap): Unknown Influenza Vaccine Up-to-Date: No; Not Current Past Medical History PMHx: Coronary artery disease Peripheral vascular disease Hypertension Hyperlipidemia COVID19 infection 08/2020 CHF SurgHx: Triple A repair with stenting in triple A and to kidney Coronary artery stenting multiple times x 2 Cholecystectomy Right knee arthroscopy Total hysterectomy with bilateral oophorectomy CABG Cardiac ablation for PVCs Family Medical History Family History: Cardiovascular disease G8 SISTER DVT 19 MOTHER FH: bladder cancer 19 FATHER, FH: colon cancer 19 FATHER, FH: liver cancer G8 BROTHER, HEMORRHAGIC STROKE 19 MOTHER Review of Systems (CHC) Constitutional: No fever EENTM: No nose congestion (admits sinus drainage when she lies down), No throat pain Respiratory: cough (occasional with sinus drainage) Gastrointestinal: No abdominal pain; constipation (last week), diarrhea (last week); No nausea, No vomiting Genitourinary: No dysuria Skin: pruritus (states due to amiodarone); No rash Reviewed Test Results Reviewed Test Results Lab Laboratory Tests Test 10/02/21 15:13 10/02/21 15:16 10/03/21 05:36 Range/Units White Blood Count 5.6 7.1 4.3-11.0 10^3/uL Red Blood Count 3.84 3.81 3.80-5.11 10^6/uL Hemoglobin 8.0 L 8.0 L 11.5-16.0 g/dL Hematocrit 29 L 28 L 35-52 % Mean Corpuscular Volume 75 L 74 L 80-99 fL Mean Corpuscular Hemoglobin 21 L 21 L 25-34 pg Mean Corpuscular Hemoglobin Concent 28 L 28 L 32-36 g/dL Red Cell Distribution Width 21.1 H 21.0 H 10.0-14.5 % Platelet Count 335 341 130-400 10^3/uL Mean Platelet Volume 9.5 10.7 9.0-12.2 fL Immature Granulocyte % (Auto) 0 % Neutrophils (%) (Auto) 70 42-75 % Lymphocytes (%) (Auto) 20 12-44 % Monocytes (%) (Auto) 8 0-12 % Eosinophils (%) (Auto) 2 0-10 % Basophils (%) (Auto) 1 0-10 % Neutrophils # (Auto) 3.9 1.8-7.8 X 10^3 Lymphocytes # (Auto) 1.1 1.0-4.0 X 10^3 Monocytes # (Auto) 0.4 0.0-1.0 X 10^3 Eosinophils # (Auto) 0.1 0.0-0.3 10^3/uL Basophils # (Auto) 0.0 0.0-0.1 10^3/uL Immature Granulocyte # (Auto) 0.0 0.0-0.1 10^3/uL D-Dimer 0.88 H 0.00-0.49 UG/ML Sodium Level 144 142 135-145 MMOL/L Potassium Level 3.7 3.4 L 3.6-5.0 MMOL/L Chloride Level 105 102 98-107 MMOL/L Carbon Dioxide Level 25 25 21-32 MMOL/L Anion Gap 14 15 H 5-14 MMOL/L Blood Urea Nitrogen 24 H 23 H 7-18 MG/DL Creatinine 1.51 H 1.35 H 0.60-1.30 MG/DL Estimat Glomerular Filtration Rate 39 44 BUN/Creatinine Ratio 16 17 Glucose Level 138 H 103 70-105 MG/DL Calcium Level 8.3 L 8.4 L 8.5-10.1 MG/DL Corrected Calcium 9.2 8.5-10.1 MG/DL Magnesium Level 2.0 1.6-2.4 MG/DL Total Bilirubin 1.0 0.1-1.0 MG/DL Aspartate Amino Transf (AST/SGOT) 17 5-34 U/L Alanine Aminotransferase (ALT/SGPT) 14 0-55 U/L Alkaline Phosphatase 151 H 40-136 U/L Troponin I < 0.028 <0.028 NG/ML B-Type Natriuretic Peptide 4288.8 H <100.0 PG/ML Total Protein 6.3 L 6.4-8.2 GM/DL Albumin 2.9 L 3.2-4.5 GM/DL Thyroid Stimulating Hormone (TSH) 1.57 0.35-4.94 UIU/ML Free Thyroxine 1.19 0.70-1.48 NG/DL Influenza Type A (RT-PCR) Not Detected Not Detecte Influenza Type B (RT-PCR) Not Detected Not Detecte SARS-CoV-2 RNA (RT-PCR) Not Detected Not Detecte Radiology CXR 10/03/21: IMPRESSION: Cardiomegaly with mild pulmonary venous hypertension. Physical Exam-(CHC) Physical Exam Vital Signs VS - Last 72 Hours, by Label 10/02/21 10/02/21 10/02/21 10/02/21 15:00 18:32 19:03 19:48 Temp 36.8 36.8 36.4 Pulse 50 44 50 51 Resp 15 16 20 B/P (MAP) 133/64 (87) 141/63 150/70 (96) Pulse Ox 98 97 98 98 O2 Delivery Room Air FiO2 21 10/02/21 10/02/21 10/02/21 10/03/21 19:49 20:00 23:29 01:00 Temp 36.4 Pulse 50 53 50 Resp 18 B/P (MAP) 143/70 (94) Pulse Ox 96 O2 Delivery Room Air Room Air 10/03/21 10/03/21 10/03/21 10/03/21 03:17 07:13 08:00 08:08 Temp 36.3 36.7 Pulse 62 49 49 Resp 18 18 B/P (MAP) 131/61 (84) 152/80 (104) Pulse Ox 98 94 O2 Delivery Room Air Room Air Room Air 10/03/21 10/03/21 10/03/21 10/03/21 10:34 11:26 12:16 15:38 Temp 36.5 36.2 Pulse 53 41 50 Resp 18 18 B/P (MAP) 125/59 (81) 138/71 (93) Pulse Ox 96 97 97 O2 Delivery Room Air Room Air Room Air 10/03/21 10/03/21 19:00 19:13 Temp 36.9 Pulse 46 50 Resp 20 B/P (MAP) 131/60 (83) Pulse Ox 97 O2 Delivery Room Air Capillary Refill : General Appearance: WD/WN, no apparent distress Respiratory: lungs clear, normal breath sounds Cardiovascular: regular rate, rhythm, systolic murmur Gastrointestinal: normal bowel sounds, non tender, soft Extremities: pedal edema Neurologic/Psychiatric: alert, normal mood/affect Skin: normal color, warm/dry Assessment/Plan Assessment/Plan Admission Status: Observation (1) Acute exacerbation of CHF (congestive heart failure) Status: Acute Assessment & Plan: Improving with IV lasix, appreciate Cardiology recommendations. Home meds resumed. Qualifiers: Qualified Codes: I50.23 - Acute on chronic systolic (congestive) heart failure (2) Hypertension Status: Chronic Qualifiers: Qualified Codes: I10 - Essential (primary) hypertension (3) Peripheral vascular disease Status: Chronic (4) Coronary artery disease Status: Chronic (5) Anemia Status: Acute Assessment & Plan: Uncertain etiology, will check labs and monitor, may need outpatient scopes pending results. (6) Acute on chronic kidney failure Status: Acute Assessment & Plan: Baseline creatinine appears to be around 1.1-1.2, improved today after diuresis, monitor closely. (7) DVT prophylaxis Status: Acute Assessment & Plan: Enoxaparin CRISTOPHER ZAZUETA MD Oct 03, 2021 13:19
[2021-10-03 13:41] LABS: ABSOLUTE RETIC # 58 10e9/uL (24-90); BASOPHILS # (AUTO) 0.1 10^3/uL (0.0-0.1); BASOPHILS % (AUTO) 1 % (0-10); EOSINOPHILS # (AUTO) 0.2 10^3/uL (0.0-0.3); EOSINOPHILS % (AUTO) 2 % (0-10); HEMATOCRIT 29 % (35-52); LYMPHOCYTES # (AUTO) 1.2 10^3/uL (1.0-4.0); LYMPHOCYTES % (AUTO) 18 % (12-44); MEAN CORPUSCULAR HEMOGLOBIN 21 pg (25-34); MEAN CORPUSCULAR HGB CONC 28 g/dL (32-36); MEAN CORPUSCULAR VOLUME 75 fL (80-99); MEAN PLATELET VOLUME 10.6 fL (9.0-12.2); MONOCYTES # (AUTO) 0.5 10^3/uL (0.0-1.0); MONOCYTES % (AUTO) 7 % (0-12); NEUTROPHILS # (AUTO) 5.1 10^3/uL (1.8-7.8); NEUTROPHILS % (AUTO) 72 % (42-75); PLATELET COUNT 319 10^3/uL (130-400); RETICULOCYTE % 1.53 % (0.50-2.40)
[2021-10-03 14:06] LABS: EOSINOPHILS % (MANUAL) 3 %; LYMPHOCYTES % (MANUAL) 15 %; MONOCYTES % (MANUAL) 5 %; NEUTROPHILS % (MANUAL) 77 %
[2021-10-03 14:07] LABS: HYPOCHROMASIA MODERATE; MICROCYTOSIS MODERATE; POIKILOCYTOSIS MARKED
[2021-10-03 15:38] VITALS: BP 138/71
[2021-10-03 19:13] VITALS: BP 131/60
[2021-10-03] MEDS: ENOXAPARIN 40 MG/0.4 ML (LOVENOX) SYR SQ SCH (22:14)
[2021-10-04] VITALS (7 sets, daily range): BP systolic 125–150; BP diastolic 58–78
[2021-10-04] MEDS: CATHETER FLUSH 10 ML SYR IVP SCH ×3 (05:07→21:12)
[2021-10-04] MEDS: FUROSEMIDE 40 MG/4 ML INJ (LASIX) IV SCH ×2 (05:07→17:06)
[2021-10-04 05:41] LABS: HEMATOCRIT 30 % (35-52); HEMOGLOBIN 8.5 g/dL (11.5-16.0); MEAN CORPUSCULAR HEMOGLOBIN 21 pg (25-34); MEAN CORPUSCULAR HGB CONC 29 g/dL (32-36); MEAN CORPUSCULAR VOLUME 73 fL (80-99); MEAN PLATELET VOLUME 10.2 fL (9.0-12.2); PLATELET COUNT 333 10^3/uL (130-400); WHITE BLOOD COUNT 6.7 10^3/uL (4.3-11.0)
[2021-10-04 05:52] LABS: POTASSIUM 3.9 MMOL/L (3.6-5.0)
[2021-10-04 05:53] LABS: CALCIUM 8.7 MG/DL (8.5-10.1)
[2021-10-04 05:57] LABS: CREATININE SERUM 1.22 MG/DL (0.60-1.30)
[2021-10-04] MEDS: AMIODARONE 200 MG (CORDARONE) TAB PO SCH (09:41)
[2021-10-04] MEDS: CLOPIDOGREL 75 MG (PLAVIX) TABLET PO SCH (09:41)
[2021-10-04] MEDS: PANTOPRAZOLE 40 MG (PROTONIX) TAB PO SCH (09:41)
[2021-10-04] MEDS: SACUBITRIL/VALSARTAN 24/26 MG (ENTRESTO) TABLET PO SCH ×2 (09:41→21:12)
[2021-10-04] MEDS: ASPIRIN E.C. 81 MG (ECOTRIN) TAB PO SCH (09:41)
--- NOTE | 2021-10-04 11:42 | Cardiology Progress Note ---
Subjective Date Seen by Provider: Oct 04, 2021 Time Seen by Provider: 13:00 Subjective/Events-last exam Patient is sitting up in bed, reports dyspnea has significantly improved. Denies any chest pain. Objective-Cardiology Exam Last Set of Vital Signs Vital Signs 10/02/21 10/04/21 10/04/21 10/04/21 19:03 11:18 12:04 12:36 Temp 36.6 Pulse 64 Resp 18 B/P (MAP) 125/58 (80) Pulse Ox 96 O2 Delivery Room Air FiO2 21 I&O Intake and Output 10/04/21 00:00 Intake Total 1700 ml Output Total 800 ml Balance 900 ml Intake Oral 1700 ml Output Urine Total 800 ml # Voids 18 # Bowel Movements 2 General: Alert, Oriented X3 HEENT: Atraumatic, PERRLA Lungs: Clear to Auscultation, Normal Air Movement Heart: Regular Rate Abdomen: Normal Bowel Sounds, Soft Extremities: Other (trace edema) Skin: No Rashes, No Significant Lesion Neuro: Normal Speech Psych/Mental Status: Mental Status NL, Mood NL Results Lab Laboratory Tests 10/04/21 05:29 A/P-Cardiology Admission Diagnosis Congestive heart failure Coronary artery disease Chronic kidney disease Peripheral edema Assessment/Plan Congestive heart failure, acute on chronic left ventricular systolic dysfunction, ischemic cardiomyopathy Received Lasix IV and responding well to diuretics. Reporting significant improvement Continue with aggressive diuresis and evaluate tolerance and response. Coronary artery disease, extensive history History of CABG using vein graft to OM, vein graft to the PDA, radial to the diagonal and MCCLELLAND to the LAD in June 2011 at [facility] [place] Cardiac catheterization in December 2019 showing moderate to severe mom mid LAD stenosis, moderate mid circumflex artery with moderate disease at the distal OM, mid vessel occlusion of the right coronary artery, occluded graft to the right coronary artery obtuse marginal and diagonal. Patent MCCLELLAND to the LAD with anterolateral hypokinesis and posterobasal and diaphragmatic akinesis. Ejection fraction 20% February 2021 with 2 stents to the circumflex and obtuse marginal system by Dr. Farmer History of ventricular arrhythmia. Frequent PVCs, Holter monitor showed 43 beats of nonsustained ventricular tachycardia. Improved on amiodarone in April [address] Rojas in May 2021 History of ICD implant in 2019 single-chamber. No arrhythmia detected as an outpatient. Did not interrogate her ICD on this admission. Peripheral arterial disease, history of abdominal aortic aneurysm Endograft done by Dr. Farmer in January 2021 at [facility] [place] Tobaccoism, still an active smoker History of orthostatic dizziness with postural hypotension. Secondary to aggressive medication Questionable sleep apnea. Chronic pedal edema. Chronic kidney disease stage III. Continue to monitor renal function while on aggressive diuresis Cervical stenosis followed by Dr. Jasso Carotid stenosis, followed by Dr. Dangelo. Chronic anxiety Supervisory-Addendum Brief Supervisory Addendum Participated in pt care: history, MDM, physical Personally performed: exam, history, MDM Care discussed with: MIRIAM Results interpretation: Verified all documentation Notes: Patient was seen and evaluated with Frank, examination performed, management plan was discussed, agree with the current scribed note, I made few changes to the note using Italic font Patient was seen at bedside, laying down comfortably, reporting significant improvement Still having fatigue and mild edema Will continue with aggressive diuresis and possible discharge tomorrow Discussed the management plan with FRANK Rojas Oct 04, 2021 11:42 PATRICK COTTRELL MD Oct 04, 2021 13:30
--- NOTE | 2021-10-04 12:50 | Progress Note ---
Subjective Subjective/Events-last exam Pt states she is feeling better, her swelling is improved although less dramatic improvement today compared to the day prior and less urine output with her lasix than the prior day. Objective Exam Last Set of Vital Signs Vital Signs Date Time Temp Pulse Resp B/P (MAP) Pulse Ox O2 Delivery O2 Flow Rate FiO2 10/04/21 12:36 64 10/04/21 12:04 96 Room Air 10/04/21 11:18 36.6 18 125/58 (80) 10/02/21 19:03 21 Capillary Refill : I&O Intake and Output 10/04/21 00:00 Intake Total 1700 ml Output Total 800 ml Balance 900 ml Intake Oral 1700 ml Output Urine Total 800 ml # Voids 18 # Bowel Movements 2 General: Alert, No Acute Distress Lungs: Clear to Auscultation, Normal Air Movement Heart: Regular Rate Abdomen: Normal Bowel Sounds, Soft Extremities: Other (1+ pitting edema to thighs) Neuro: Normal Speech Psych/Mental Status: Mood NL Results/Procedures Lab Laboratory Tests 10/04/21 05:29: White Blood Count 6.7, Red Blood Count 4.04, Hemoglobin 8.5L, Hematocrit 30L, Mean Corpuscular Volume 73L, Mean Corpuscular Hemoglobin 21L, Mean Corpuscular Hemoglobin Concent 29L, Red Cell Distribution Width 20.8H, Platelet Count 333, Mean Platelet Volume 10.2, Sodium Level 139, Potassium Level 3.9, Chloride Level 99, Carbon Dioxide Level 28, Anion Gap 12, Blood Urea Nitrogen 22H, Creatinine 1.22, Estimat Glomerular Filtration Rate 50, BUN/Creatinine Ratio 18, Glucose Level 100, Calcium Level 8.7, Magnesium Level 2.0 10/04/21 05:37: Stool Occult Blood Immunoassay NEGATIVE Radiology CXR 10/03/21: IMPRESSION: Cardiomegaly with mild pulmonary venous hypertension. Assessment/Plan Assessment/Plan (1) Acute exacerbation of CHF (congestive heart failure) Status: Acute Assessment & Plan: Improving with IV lasix, appreciate Cardiology r ecommendations. Home meds resumed. Qualifiers: Qualified Codes: I50.23 - Acute on chronic systolic (congestive) heart failure (2) Hypertension Status: Chronic Qualifiers: Qualified Codes: I10 - Essential (primary) hypertension (3) Peripheral vascular disease Status: Chronic (4) Coronary artery disease Status: Chronic (5) Anemia Status: Acute Assessment & Plan: Uncertain etiology, will check labs and monitor, may need outpatient scopes pending results. 10/04 iron studies suggest iron deficiency, stool occult blood neg, discussed with patient would recommend outpatient scopes. (6) Acute on chronic kidney failure Status: Resolved Assessment & Plan: Baseline creatinine appears to be around 1.1-1.2, improved today after diuresis, monitor closely. 10/04 at baseline (7) DVT prophylaxis Status: Acute Assessment & Plan: Enoxaparin CRISTOPHER MARIANO MD Oct 04, 2021 12:50
[2021-10-04] MEDS: ENOXAPARIN 40 MG/0.4 ML (LOVENOX) SYR SQ SCH (21:13)
[2021-10-05 04:37] VITALS: BP 132/71
[2021-10-05] MEDS: FUROSEMIDE 40 MG/4 ML INJ (LASIX) IV SCH (04:49)
[2021-10-05] MEDS: CATHETER FLUSH 10 ML SYR IVP SCH (04:50)
[2021-10-05 05:52] LABS: HEMATOCRIT 30 % (35-52); HEMOGLOBIN 8.5 g/dL (11.5-16.0); MEAN CORPUSCULAR HEMOGLOBIN 21 pg (25-34); MEAN CORPUSCULAR HGB CONC 29 g/dL (32-36); MEAN CORPUSCULAR VOLUME 73 fL (80-99); MEAN PLATELET VOLUME 10.4 fL (9.0-12.2); PLATELET COUNT 357 10^3/uL (130-400); WHITE BLOOD COUNT 7.5 10^3/uL (4.3-11.0)
[2021-10-05 05:59] LABS: POTASSIUM 3.4 MMOL/L (3.6-5.0)
[2021-10-05 06:00] LABS: CALCIUM 8.6 MG/DL (8.5-10.1)
[2021-10-05 06:05] LABS: CREATININE SERUM 1.23 MG/DL (0.60-1.30)
[2021-10-05 07:42] VITALS: BP 143/82
--- NOTE | 2021-10-05 08:14 | Cardiology Progress Note ---
Subjective Date Seen by Provider: Oct 05, 2021 Time Seen by Provider: 08:09 Subjective/Events-last exam Patient was seen at bedside, laying down comfortably Still having mild pedal edema but overall reporting significant improvement. Review of Systems General: No Chills, No Night Sweats, No Fatigue, No Malaise, No Appetite, No Other HEENT: No Head Aches, No Visual Changes, No Eye Pain, No Ear Pain, No Dysphasia, No Sinus Congestion, No Post Nasal Drip, No Sore Throat, No Other Pulmonary: No Dyspnea, No Cough, No Pleuritic Chest Pain, No Other Cardiovascular: Edema; No: Chest Pain, Palpitations, Orthopnea, Paroxysmal Noc. Dyspnea, Lt Headedness, Other Objective-Cardiology Exam Last Set of Vital Signs Vital Signs 10/02/21 10/05/21 19:03 07:42 Temp 36.3 Pulse 62 Resp 18 B/P (MAP) 143/82 (102) Pulse Ox 96 O2 Delivery Room Air FiO2 21 I&O Intake and Output 10/04/21 23:59 Intake Total 1380 ml Output Total 1200 ml Balance 180 ml Intake Oral 1380 ml Output Urine Total 1200 ml # Voids 6 # Bowel Movements 2 General: Alert, Oriented X3, Cooperative, No Acute Distress HEENT: Atraumatic, PERRLA Neck: Supple, No JVD Lungs: Clear to Auscultation, Normal Air Movement Heart: Regular Rate, Normal S1, Normal S2 Abdomen: Normal Bowel Sounds, Soft Extremities: Other (1+ pitting edema to thighs) Skin: No Rashes, No Significant Lesion Neuro: Normal Speech Psych/Mental Status: Mental Status NL, Mood NL Results Lab Laboratory Tests 10/05/21 05:36 A/P-Cardiology Admission Diagnosis Congestive heart failure Coronary artery disease Chronic kidney disease Peripheral edema Assessment/Plan Congestive heart failure, acute on chronic left ventricular systolic dysfunction, ischemic cardiomyopathy Echocardiogram in September 2019 showed dilated left ventricle with diffuse left ventricular hypokinesia with ejection fraction 25 to 30%, biatrial enlargement, moderate to severe mitral regurgitation, pulmonary artery pressure of 35 to 40 mmHg. Received Lasix IV and responding well to diuretics. Reporting significant improvement Responded well to diuretics. Discussed with the patient the management plan, okay for discharge on Lasix 40 mg twice daily and taking additional Lasix as needed for worsening edema and weight gain. Coronary artery disease, extensive history History of CABG using vein graft to OM, vein graft to the PDA, radial to the diagonal and MCCLELLAND to the LAD in June 2011 at [facility] Cardiac catheterization in December 2019 showing moderate to severe mom mid LAD stenosis, moderate mid circumflex artery with moderate disease at the distal OM, mid vessel occlusion of the right coronary artery, occluded graft to the right coronary artery obtuse marginal and diagonal. Patent MCCLELLAND to the LAD with anterolateral hypokinesis and posterobasal and diaphragmatic akinesis. Ejection fraction 20% February 2021 with 2 stents to the circumflex and obtuse marginal system by Dr. Farmer History of ventricular arrhythmia. Frequent PVCs, Holter monitor showed 43 beats of nonsustained ventricular tachycardia. Improved on amiodarone in April [address] Rojas in May 2021 History of ICD implant in 2019 single-chamber. No arrhythmia detected as an outpatient. Did not interrogate her ICD on this admission. Peripheral arterial disease, history of abdominal aortic aneurysm Endograft done by Dr. Farmer in January 2021 at [facility] Tobaccoism, still an active smoker History of orthostatic dizziness with postural hypotension. Secondary to aggressive medication Questionable sleep apnea. Chronic pedal edema. Chronic kidney disease stage III. Continue to monitor renal function while on aggressive diuresis Cervical stenosis followed by Dr. Jasso Carotid stenosis, followed by Dr. Dangelo. Chronic anxiety PATRICK COTTRELL MD Oct 05, 2021 08:14
[2021-10-05] MEDS: PANTOPRAZOLE 40 MG (PROTONIX) TAB PO SCH (09:12)
[2021-10-05] MEDS: AMIODARONE 200 MG (CORDARONE) TAB PO SCH (09:12)
[2021-10-05] MEDS: ASPIRIN E.C. 81 MG (ECOTRIN) TAB PO SCH (09:12)
[2021-10-05] MEDS: CLOPIDOGREL 75 MG (PLAVIX) TABLET PO SCH (09:12)
[2021-10-05] MEDS: SACUBITRIL/VALSARTAN 24/26 MG (ENTRESTO) TABLET PO SCH (09:12)
[2021-10-05] MEDS ORDERED: POTA-51 PO (09:36)
[2021-10-05] MEDS ORDERED: FURO-124 PO (09:36)
--- NOTE | 2021-10-05 09:39 | Discharge Summary ---
Discharge Summary Hospital Course Problems/Diagnosis: (1) Acute exacerbation of CHF (congestive heart failure) Status: Acute Assessment & Plan: Improved with IV lasix, appreciate Cardiology recommendations. Home lasix increased to BID. Qualifiers: Qualified Codes: I50.23 - Acute on chronic systolic (congestive) heart failure (2) Hypertension Status: Chronic Qualifiers: Qualified Codes: I10 - Essential (primary) hypertension (3) Peripheral vascular disease Status: Chronic (4) Coronary artery disease Status: Chronic (5) Anemia Status: Acute Assessment & Plan: Uncertain etiology, will check labs and monitor, may need outpatient scopes pending results. 10/04 iron studies suggest iron deficiency, stool occult blood neg, discussed with patient would recommend outpatient scopes. (6) Acute on chronic kidney failure Status: Resolved Resolution Date/Time: 10/04/21 @ 12:50 Assessment & Plan: Baseline creatinine appears to be around 1.1-1.2, improved today after diuresis, monitor closely. 10/04 at baseline Qualifiers: Qualified Codes: N17.9 - Acute kidney failure, unspecified; N18.31 - Chronic kidney disease, stage 3a Hospital Course Date of Admission: Oct 02, 2021 at 17:29 Admission Diagnosis : Family Physician/Provider: [place] [place] Date of Discharge: 10/05/21 Discharge Diagnosis: See problem list Hospital Course: See problem list Labs and Pending Lab Test: Laboratory Tests 10/05/21 05:36: White Blood Count 7.5, Red Blood Count 4.08, Hemoglobin 8.5L, Hematocrit 30L, Mean Corpuscular Volume 73L, Mean Corpuscular Hemoglobin 21L, Mean Corpuscular Hemoglobin Concent 29L, Red Cell Distribution Width 20.8H, Platelet Count 357, Mean Platelet Volume 10.4, Sodium Level 141, Potassium Level 3.4L, Chloride Level 98, Carbon Dioxide Level 29, Anion Gap 14, Blood Urea Nitrogen 20H, Creatinine 1.23, Estimat Glomerular Filtration Rate 49, BUN/Creatinine Ratio 16, Glucose Level 110H, Calcium Level 8.6 Home Meds Active Potassium Chloride 20 Meq Tablet.er 20 Meq PO BID Lasix (Furosemide) 40 Mg Tablet 40 Mg PO BID Amiodarone HCl 200 Mg Tablet 200 Mg PO DAILY Metoprolol Succinate 50 Mg Tab.er.24h 50 Mg PO BID Reported Entresto 24 mg-26 mg Tablet (Sacubitril/Valsartan) 24 Mg-26 Mg Tablet 1 Tab PO BID Plavix (Clopidogrel Bisulfate) 75 Mg Tablet 75 Mg PO DAILY Pantoprazole Sodium 40 Mg Tablet. 40 Mg PO DAILY Aspirin EC (Aspirin) 81 Mg Tablet. 81 Mg PO DAILY Atorvastatin Calcium 40 Mg Tablet 40 Mg PO HS Assessment/Pt DC Instructions Follow up with Cardiology within a week or two of discharge. Have labs drawn in a few days to send to Cardiology. Follow up with your primary provider within a week and discuss further anemia work-up with them. Discharge Diet: Low Sodium Diet Activity as Tolerated: Yes Discharge Physical Examination Allergies: Coded Allergies: Penicillins (Verified Allergy, Intermediate, RASH, 11/03/14) General Appearance: No Apparent Distress, WD/WN Respiratory: Lungs Clear, Normal Breath Sounds Cardiovascular: Regular Rate, Rhythm, Systolic Murmur Extremity: Other (trace pedal edema) Skin: Normal Color, Warm/Dry Neurologic/Psychiatric: Alert, Normal Mood/Affect CRISTOPHER MARIANO MD Oct 05, 2021 09:39
== END 2021-10-05 09:33 | disposition home or self-care (01) ==
LOC: EDUNIT# 14:29 → ER 14:31 → 4TH 17:29 → UNDOADMOB 17:29 → 4TH 18:43 → UNDODISOB 10-05 10:23
PROVIDERS: ADMIT Family Medicine; ATTEND Family Medicine
DX: I13.0 Hypertensive heart and chronic kidney disease with heart failure and stage 1 through stage 4 chronic kidney disease, or unspecified chronic kidney disease (principal); D63.1 Anemia in chronic kidney disease; I50.23 Acute on chronic systolic (congestive) heart failure; N17.9 Acute kidney failure, unspecified; N18.30 Chronic kidney disease, stage 3 unspecified; I73.9 Peripheral vascular disease, unspecified; I25.10 Atherosclerotic heart disease of native coronary artery without angina pectoris; Z79.82 Long term (current) use of aspirin; F17.210 Nicotine dependence, cigarettes, uncomplicated; F41.9 Anxiety disorder, unspecified; M48.02 Spinal stenosis, cervical region; I65.29 Occlusion and stenosis of unspecified carotid artery
CPT/HCPCS: 36415; 71045; 80048; 80053; 82274; 82728; 83540; 83550; 83735; 83880; 84439; 84443; 84484; 85007; 85025; 85027; 85045; 85055; 85379; 87636; 94760; 96372; 96376; G0378

== ENCOUNTER → 2021-10-09 | Outpatient (CLI) | payer MEDICARE ==
[~2021-10-09] MED LIST changes: +SACU1TAB2 PO
[2021-10-09 11:22] LABS: CALCIUM 8.9 MG/DL (8.5-10.1); CREATININE SERUM 1.5 MG/DL (0.60-1.30); MAGNESIUM 2.1 MG/DL (1.6-2.4); POTASSIUM 4.2 MMOL/L (3.6-5.0)
== END ==
LOC: LAB 10:35
PROVIDERS: ATTEND Family Medicine
DX: N17.9 Acute kidney failure, unspecified (principal); Z79.899 Other long term (current) drug therapy
CPT/HCPCS: 36415; 80048; 83735

== ENCOUNTER 2021-11-17 09:47 | Outpatient (CLI) | payer MEDICARE ==
[~2021-11-17] VITALS: Ht 165.1 cm; Wt 68.5 kg
== END 2021-11-17 13:24 | disposition home or self-care (01) ==
LOC: PREOP 09:47
PROVIDERS: ATTEND Internal Medicine
DX: Z01.818 Encounter for other preprocedural examination (principal)

== ENCOUNTER 2021-11-24 08:25 | Day surgery (SDC) | payer MEDICARE ==
[~2021-11-24] VITALS: Ht 165 cm; Wt 68.5 kg
[2021-11-24] MEDS ORDERED: LACTATED RINGERS 1,000 ML IV STA (08:39)
[2021-11-24] MEDS ORDERED: HURRICAINE EXT TUBE (BENZOCAINE) XX PRN (08:45)
--- NOTE | 2021-11-24 09:01 | Pre-Op Note & Conscious Sedat ---
Pre-Operative Progress Note Date H&P Reviewed: Nov 24, 2021 Time H&P Reviewed: 09:01 History & Physical: H&P Reviewed, Patient Examed, No changes noted Pre-Op Diagnosis: screening Conscious Sedation Pre-Proced ASA Score 2 For ASA 3 and 4: Consider anesthesia and medical clearance. Also, for patients with a history of failed moderate sedation consider anesthesia. Airway Lungs Heart ASA score ASA 1: a normal healthy patient ASA 2: a patient with a mild systemic disease (mid diabetes, controlled hypertension, obesity ASA 3: a patient with a severe systemic disease that limits activity (angina, COPD, prior Myocardial infarction) ASA 4: a patient with an incapacitating disease that is a constant threat to life (CHF, renal failure) ASA 5: a moribund patient not expected to survive 24 hrs. (ruptured aneurysm) ASA 6: a declared brain- patient whose organs are being harvested. For emergent operations, add the letter E after the classification Mallampati Classification Grade 2 Sedation Plan Analgesia, Amnesia, Plan communicated to team members, Discussed options with patient/fam, Discussed risks with patient/fam The patient is an appropriate candidate to undergo the planned procedure, sedation, and anesthesia. The patient immediately re-assessed prior to indication. SHADY PICKARD MD Nov 24, 2021 09:01
[2021-11-24 09:09] VITALS: BP 142/75
[2021-11-24] MEDS ORDERED: PROPOFOL INJECTION 50 ML IV ONE (09:42)
[2021-11-24] MEDS ORDERED: MIDAZOLAM 2 MG/2 ML (VERSED) VIAL ONE (09:42)
[2021-11-24] MEDS ORDERED: GLYCOPYRROLATE 0.2 MG/ML (ROBINUL) 2 ML VIAL ONE (09:58)
[2021-11-24 10:18] VITALS: BP 82/49
--- NOTE | 2021-11-24 10:22 | Progress Note-Post Operative ---
Post-Procedure Note Physician (s)/Real Estate Associate Attorney (s) Physician SHADY PICKARD MD Pre-Procedure Diagnosis Pre-Procedure Diagnosis: fe deficiency anemia Post-Procedure Diagnosis Post-operative diagnosis: Normal EGD mild sigmoid diverticular disease otherwise normal colon SHADY PICKARD MD Nov 24, 2021 10:22
[2021-11-24 10:23] VITALS: BP 83/49
[2021-11-24 10:28] VITALS: BP 82/50
[2021-11-24 10:33] VITALS: BP 85/50
[2021-11-24 11:00] VITALS: BP 85/50
--- NOTE | 2021-11-24 11:40 | Anesthesia-General Post-Op ---
MAC Patient Condition Mental Status/LOC: Same as Preop Cardiovascular: Satisfactory Nausea/Vomiting: Absent Respiratory: Satisfactory Pain: Controlled Complications: Absent Post Op Complications Complications None Follow Up Care/Instructions Patient Instructions None needed. Anesthesiology Discharge Order Discharge Order Patient is doing well, no complaints, stable vital signs, no apparent adverse anesthesia problems. No complications reported per nursing. NIKUNJ JEFFREY CRNA Nov 24, 2021 11:40
--- NOTE | 2021-11-24 13:57 | OPERATIVE REPORT ---
DATE OF SERVICE: PANENDOSCOPY SUMMARY INDICATION FOR THE PROCEDURE: Iron deficiency anemia with family history of colon cancer. DESCRIPTION OF PROCEDURE: The patient was placed in the left lateral decubitus position. The endoscope was inserted into the oral cavity and under direct visualization, the esophagus was intubated. The endoscope was passed down the esophagus through stomach and second portion of the duodenum. Careful inspection was made as the endoscope was withdrawn. FINDINGS: The posterior pharynx, arytenoid aperture, epiglottis and true and false vocal folds were unremarkable to gross inspection. Proximal, mid and distal esophagus were unremarkable. No evidence for rings, webs, strictures, Clark's change or esophagitis was noted. The cardia, fundus, antrum, pylorus, pyloric channel, duodenal bulb, and second portion of the duodenum were unremarkable. ASSESSMENT: Normal EGD. We then proceeded with colonoscopy. Prior to undergoing colonoscopy, a digital rectal evaluation was performed. Anal sphincter tone was normal and the perianal reflexes intact. No abnormalities were noted on digital inspection of the anal canal or distal rectal vault. The colonoscope was then inserted into the rectum and under direct visualization advanced to the cecum. Cecum was identified by identification of the ileocecal valve, cecal strap and the appendiceal orifice. Photographic documentation was obtained. Quality of the prep was good. FINDINGS: One grade I internal hemorrhoid complex was noted with no evidence for external hemorrhoids. The rectum was unremarkable. Mild to moderate diverticular disease confined to the sigmoid colon was present. One diminutive inflammatory polyp 2 to 3 mm in size was noted. It was photographed. It was left considering dual antiplatelet therapy and medical comorbidities. There was no ulceration and this was an unlikely source for bleeding. There was no evidence for diverticulitis. The descending colon, splenic flexure, transverse colon, hepatic flexure, ascending colon, and cecum were unremarkable. ASSESSMENT: Mild to moderate diverticular disease confined to the sigmoid colon was present. One grade I internal hemorrhoid complex was noted. One diminutive 4 mm inflammatory appearing polyp was noted without evidence for ulceration or stigmata to suggest bleeding with low risk for bleeding as noted above. It was left secondary to the patient's need for dual antiplatelet therapy and her underlying significant medical comorbidity. The patient was reassured by today's findings. We will be resuming all medications including aspirin and Plavix. Job ID: [id number] DocumentID: [id number] Dictated Date: 11/24/2021 10:26:53 [employer] Date: 11/24/2021 13:56:56 Dictated By: SHADY PICKARD MD
== END 2021-11-24 11:18 | disposition home or self-care (01) ==
LOC: ENDO 08:25
PROVIDERS: ATTEND Internal Medicine
DX: K51.40 Inflammatory polyps of colon without complications (principal); D50.9 Iron deficiency anemia, unspecified; Z80.0 Family history of malignant neoplasm of digestive organs; K64.8 Other hemorrhoids; F17.210 Nicotine dependence, cigarettes, uncomplicated

== ENCOUNTER → 2022-04-09 | Outpatient (CLI) | payer MEDICARE ==
[~2022-04-09] MED LIST changes: +ALBU8.5H6 IH; +CLOP-31 PO; -CLOP75TA69 PO; -POTA10CA43 PO; +POTA10CA44 PO; -RT-ALBUINH IH
== END ==
LOC: CARD 12:51
PROVIDERS: ATTEND Internal Medicine Cardiovascular Disease
DX: I08.1 Rheumatic disorders of both mitral and tricuspid valves (principal); I47.20 Ventricular tachycardia, unspecified
CPT/HCPCS: 93306

== ENCOUNTER → 2022-05-15 | Outpatient (CLI) | payer MEDICARE ==
--- NOTE | 2022-05-15 11:41 | Diagnostic Imaging Report ---
PROCEDURE: US Aorta Doppler. TECHNIQUE: Multiple real time grayscale images were obtained over the abdominal aorta in various projections. INDICATION: History of abdominal aortic aneurysm without rupture. Status post repair in 2021. COMPARISON: 01/21/2019. 07/19/2021. FINDINGS: The proximal aorta measures 2.2 x 2.0 cm. The mid aorta measures 2.4 x 2.2 cm. The distal abdominal aorta measures 2.6 x 4.2 cm. The infrarenal abdominal aortic aneurysm measures 3.1 x 4.2 x 3.9 cm. The right common iliac artery measures 1.3 x 1.3 cm and the left measures 1.0 x 1.0 cm. Aortobiiliac stent is noted in the distal aorta. The flow velocities within the aorta and bilateral common iliac arteries are normal. IMPRESSION: 1. Stable appearance of the infrarenal abdominal aortic aneurysm status post aortobiiliac stent grafting. Dictated by: Dictated on workstation # [id number]
== END ==
LOC: RAD 07:51
PROVIDERS: ATTEND Internal Medicine Cardiovascular Disease
DX: I71.40 Abdominal aortic aneurysm, without rupture, unspecified (principal)
CPT/HCPCS: 93978